=== PATIENT | female | born 1930 | race Caucasian/White ===

== ENCOUNTER 2016-07-28 13:13 | Inpatient (IN) | payer MEDICARE, OTHER ==
[~2016-07-28] VITALS: Ht 154.9 cm; Wt 61.3 kg
[~2016-07-28 13:13] MED LIST: ISOS30TA; PRAS10TA6; SITA1TAB7; UNKNOWN INSULIN; ZOLP5TAB; [UNRECOGNIZED DRUG - REMARK]
[2016-07-28] MEDS ORDERED: SOD CHLORIDE 0.9% 1,000 ML IV STA (13:30)
[2016-07-28] MEDS ORDERED: morphine 4 MG/ML VIAL IV STA (13:30)
[2016-07-28] MEDS ORDERED: ONDANSETRON 4 MG INJ IV STA (13:30)
[2016-07-28 14:10] LABS: ADD SCAN DIFF NO
[2016-07-28 14:14] LABS: BASOPHIL # 0.1 10^3/ul (0.0-0.1); BASOPHILS % 0.8 % (0.0-2.0); EOSINOPHILS # 0.2 10^3/ul (0.0-0.5); EOSINOPHILS % 2.8 % (0.0-7.0); HEMATOCRIT 39.2 % (37.0-47.0); HEMOGLOBIN 13.2 g/dl (12.0-16.0); LYMPHOCYTES # 1.8 10^3/ul (0.8-2.9); LYMPHOCYTES % 23.8 % (15.0-51.0); MEAN CORPUSCULAR HEMOGLOBIN 30.7 pg (29.0-33.0); MEAN CORPUSCULAR HGB CONC 33.7 g/dl (32.0-37.0); MEAN CORPUSCULAR VOLUME 91.2 fl (82.0-101.0); MEAN PLATELET VOLUME 10.6 fl (7.4-10.4); MONOCYTE # 0.4 10^3/ul (0.3-0.9); MONOCYTES % 5.3 % (0.0-11.0); NEUTROPHIL # 4.9 10^3/ul (1.6-7.5); NEUTROPHILS % 66.4 % (39.0-77.0); PLATELET COUNT 229 10^3/UL (140-415); RED CELL DISTRIBUTION WIDTH 13.6 % (11.5-14.5); WHITE BLOOD COUNT 7.4 10^3/ul (4.8-10.8)
[2016-07-28 14:22] LABS: INR 0.91; PROTIME 12.2 Sec (12.2-14.2)
[2016-07-28 14:23] LABS: PARTIAL THROMBOPLASTIN TIME 30.3 Sec (25.0-35.0)
[2016-07-28 14:28] LABS: ALBUMIN 3.5 g/dl (3.3-4.9); CHLORIDE 102 mmol/L (97-110); SODIUM 140 mmol/L (135-144)
[2016-07-28 14:29] LABS: POTASSIUM 4.3 mmol/L (3.5-5.1)
[2016-07-28 14:30] LABS: AMYLASE 48 U/L (11-123)
[2016-07-28 14:31] LABS: ALANINE AMINOTRANSFERASE 28 IU/L (13-69); ALBUMIN/GLOBULIN RATIO 1.25; ALKALINE PHOSPHATASE 122 IU/L (42-121); ANION GAP 18 (8-16); ASPARTATE AMINO TRANSFERASE 20 IU/L (15-46); BILIRUBIN,INDIRECT 0.2 mg/dl (0-1.1); BILIRUBIN,TOTAL 0.2 mg/dl (0.2-1.3); BLOOD UREA NITROGEN 34 mg/dl (7-20); CARBON DIOXIDE 24 mmol/L (21-31); CREATININE 1.27 mg/dl (0.44-1.00); GLUCOSE 284 mg/dl (70-220); TOTAL PROTEIN 6.3 g/dl (6.1-8.1)
[2016-07-28 14:32] LABS: CALCIUM 9.9 mg/dl (8.4-10.2)
[2016-07-28] MEDS ORDERED: LANT3I SC (14:33)
[2016-07-28] MEDS ORDERED: OLME20TA20 PO (14:36)
[2016-07-28 14:45] LABS: TROPONIN-I < 0.012 ng/ml (0.00-0.12)
--- NOTE | 2016-07-28 14:56 | RADRPT ---
PROCEDURE: XR Chest. CLINICAL INDICATION: 86-year-old male with abdominal pain. TECHNIQUE: Single frontal view of the chest was obtained COMPARISON: No. FINDINGS: The soft tissues are normal. There are osteophytes in the thoracic spine. The the heart is enlarge d. The pulmonary vasculature is equilibrated with bilateral perihilar and basilar interstitial and alveolar infiltrates present. The left diaphragm is not visualized. The right diaphragm is partial ly obscured by infiltrate. . There is a less aorta. There are degenerative changes in the glenohumeral joints and narrowing of the right subacromial joint space. There are osteophytes in the thoracic spine. An abdominal shie ld is in place. IMPRESSION: 1. Cardiomegaly with equilibration the pulmonary vasculature with bilateral perihilar and basilar in terstitial and alveolar infiltrates. CHF might present this fashion. An interstitial pneumonia wit h cardiomegaly can be considered. 2. Obscuration left diaphragm may be the result of infiltrate. An associated left pleural effusion can be excluded with a left lateral decubitus view needed. 3. Spondylosis of the thoracic spine. 4. Atherosclerosis of the aortic arch. 5. Chronic right rotator cuff tear with narrowing of the right subacromial joint space. RPTAT:AAJJ Physician Zoltan Date Time Electronically viewed and signed by Nick Wiseman Physician on 07/28/2016 14:56 ZAIDA/
[2016-07-28] MEDS ORDERED: IODIXANOL LOCM 100 ML BTL ONE (15:08)
[2016-07-28] MEDS ORDERED: SOD CHLORIDE 0.9% 100 ML ONE (15:08)
--- NOTE | 2016-07-28 16:04 | RADRPT ---
PROCEDURE: CT Abdomen and Pelvis with contrast. CLINICAL INDICATION: Abdominal and flank pain TECHNIQUE: CT of the abdomen and pelvis was performed on a multi-detector scanner following the un complicated IV administration of 99 cc of Visipaque 320. Coronal and sagittal images were reformatt ed from the axial data set. One or more of the following dose reduction techniques were used: autom ated exposure control, adjustment of the mA and/or kV according to patient size, use of iterative r econstruction technique. CTDI = 10.6 mGy. DLP = 631.07 mGy-cm. COMPARISON: None. FINDINGS: CT abdomen: Mild right pleural effusion and bibasilar atelectasis are noted. There is mild cardiomegaly, withou t significant pericardial fluid. Coronary arterial calcifications are noted. Liver, gallbladder, b iliary tree, pancreas, spleen, adrenal glands and kidneys are unremarkable. No urolithiasis or obst ructive uropathy is identified. Mild hiatal hernia is noted. There is suggestion of mild diffuse g astric wall thickening, suspicious for mild gastritis. There is no abdominal aortic aneurysm or dissection. Aortic vascular calcifications are present. T here is no retroperitoneal lymphadenopathy. The nelia hepatis region is clear. CT pelvis: No bowel obstruction, free intraperitoneal air or abscess is identified. Sigmoid diverticulosis is seen without diverticulitis. The appendix is well visualized and normal. There is no colitis. Uri nary bladder is moderately distended, concerning for urinary retention. Uterus and adnexa are gross ly unremarkable. No pelvic mass, free fluid or lymphadenopathy is identified. The surrounding osseous structures are remarkable for degenerative spondylosis of the spine. No ost eolytic or osteoblastic lesion is detected. IMPRESSION: 1. Urinary bladder is moderately distended, concerning for urinary retention. 2. There is suggestion of mild diffuse gastric wall thickening, possibly indicating gastritis. 3. Mild hiatal hernia is noted. 4. There is mild cardiomegaly. Coronary arterial and aortic atherosclerotic calcifications are pre sent. 5. Mild right pleural effusion and bibasilar atelectasis are noted. 6. Sigmoid diverticulosis is seen without diverticulitis. 7. No mass or lymphadenopathy is identified. RPTAT: JJ .Giancarlo Rusnack, MD, MD Date Time Electronically viewed and signed by .Giancarlo Kilpatrick MD, MD on 07/28/2016 16:04 .R/
[2016-07-28] MEDS ORDERED: LEVOFLOXACIN 500MG/D5W (PMX) 100 ML IVPB STA (16:10)
[2016-07-28] MEDS ORDERED: AZITHROMYCIN 500MG/NS (PMX) 250 ML IV STA (16:10)
[2016-07-28] MEDS ORDERED: LEVALBUTEROL (NEB) 0.63 MG/3 ML AMP INH STA (16:18)
[2016-07-28] MEDS ORDERED: IPRATROPIUM (NEB) 0.5 MG/2.5 ML AMP NEB STA (16:18)
--- NOTE | 2016-07-28 19:21 | ERA ---
ER Documentation Chief Complaint Date/Time DATE: 07/28/16 TIME: 19:10 Chief Complaint BROUGHT IN VIA EMS DUE TO GROUND LEVEL FALL YESTERDAY HPI This is a very pleasant 86-year-old Farsi speaking female with a known history of insulin-dependent diabetes that presents to the emergency department complaining of right-sided chest wall pain after she had a mechanical slip and fall 2023 hours prior to arrival. The patient stated she been walking to the bathroom when she slipped and fell and landed on her right side. She was able to ambulate and stated she did not hit her head or lose consciousness. Since that time she indicates has been difficult for her to take in a deep breath and has right-sided chest wall pain that is exacerbated by movement. She denies any back pain. She does indicate that just prior to arrival she started to develop pain in the right lower quadrant that was exacerbated with movement and deep inspiration. She denies any hemoptysis hematemesis or melanotic stools. She has had no fevers or shaking or chills. She states it is difficult for her to take in a deep breath but denies a productive or nonproductive cough. She did not take any analgesic medication prior to arrival. She denies any polyuria or polydipsia ROS All systems reviewed and are negative except as per history of present illness. Medications Home Meds Reported Medications Olmesartan Medoxomil (Benicar) Unknown Strength Tablet, PO DAILY, #30 TAB 07/28/16 Insulin Glargine* (Lantus*) 100 Unit/Ml Soln, 20 UNIT SC BID, #1 VIAL 07/28/16 Discontinued Reported Medications [Unknown Insulin] No Conflict Check 03/22/13 [Unknown Cortisone Shot] No Conflict Check 03/22/13 Sitagliptin Phos-Metformin Hcl (Janumet) 1 Tab Tablet, BID 03/22/13 Zolpidem Tartrate (Ambien Adam) 5 Mg Tablet, HS 03/22/13 Isosorbide Mononitrate* (Imdur*) 30 Mg Tab.sr.24h, DAILY 03/22/13 Prasugrel Hydrochloride* (Effient*) 10 Mg Tablet, DAILY 03/22/13 Allergies Allergies: Coded Allergies: No Known Drug Allergies (Verified Allergy, 03/22/13) PMhx/Soc History of Surgery: Yes (LEFT KNEE, ANGIOGRAM) Anesthesia Reaction: No Hx Neurological Disorder: No Hx Respiratory Disorders: No Hx Cardiac Disorders: Yes (HTN) Hx Psychiatric Problems: No Hx Miscellaneous Medical Probl: Yes (IDDM) Hx Alcohol Use: No Hx Substance Use: No Hx Tobacco Use: No Smoking Status: Never smoker Physical Exam Vitals Vital Signs Date Time Temp Pulse Resp B/P Pulse Ox O2 Delivery O2 Flow Rate FiO2 07/28/16 18:00 87 18 140/78 92 Room Air 07/28/16 17:17 85 20 93 21 07/28/16 16:00 78 18 132/73 96 Room Air 07/28/16 13:40 98.1 80 18 144/60 98 Physical Exam Constitutional:Well-developed. Well-nourished. HEENT:Normocephalic. Atraumatic.Pupils were equal round reactive to light. Moist mucous membranes.No tonsillar exudates. No nasoseptal hematoma. No hemotympanum. Neck: No nuchal rigidity. No lymphadenopathy. No posterior cervical spine tenderness or step-offs. Respiratory: Not using accessory muscles of respiration. Decreased breath sounds in the right lower lung base. No rhonchi. No rales. No wheezing. Cardiovascular: Regular rate regular rhythm.No murmurs. No rubs were appreciated.S1, S2 normal. Distal pulses are palpable 2+ bilaterally. Reproducible tenderness over the right lateral rib cage with no crepitus no ecchymosis no flail chest peer GI: Abdomen was soft. Nontender. Tenderness in the left and right lower quadrant nonspecific over McBurney's point and psoas sign and obturator sign were negative. No pulsatile abdominal masses or bruits. No rebound. No guarding. Bowel sounds were present and normal. Muscle skeletal: Full range of motion of both the upper and lower extremities bilaterally.Normal muscle tone.No assymetrical calf tenderness or swelling. No tenderness with palpation or percussion of the thoracic or lumbar spinous processes Skin: No petechia, no purpura. No lesions on the palms or the soles of the feet. No maculopapular rash. NEURO: Patient was alert, awake, orientated x3.No facial droop. Gait observed and normal with no ataxia.Speech had regular rate and rhythm. No focal neurological deficits. Result Diagram: 07/28/16 1300 07/28/16 1300 Results 24 hrs Laboratory Tests Test 07/28/16 13:00 Activated Partial Thromboplast Time 30.3Sec Alanine Aminotransferase (ALT/SGPT) 28IU/L Albumin 3.5g/dl Albumin/Globulin Ratio 1.25 Alkaline Phosphatase 122IU/L Amylase Level 48U/L Anion Gap 18 Aspartate Amino Transf (AST/SGOT) 20IU/L B-Type Natriuretic Peptide 309PG/ML Basophils # 0.110^3/ul Basophils % 0.8% Blood Urea Nitrogen 34mg/dl Calcium Level 9.9mg/dl Carbon Dioxide Level 24mmol/L Chloride Level 102mmol/L Creatinine 1.27mg/dl Direct Bilirubin 0.00mg/dl Eosinophils # 0.210^3/ul Eosinophils % 2.8% Globulin 2.80g/dl Glucose Level 284mg/dl Hematocrit 39.2% Hemoglobin 13.2g/dl INR International Normalized Ratio 0.91 Indirect Bilirubin 0.2mg/dl Lipase 55U/L Lymphocytes # 1.810^3/ul Lymphocytes % 23.8% Mean Corpuscular Hemoglobin 30.7pg Mean Corpuscular Hemoglobin Concent 33.7g/dl Mean Corpuscular Volume 91.2fl Mean Platelet Volume 10.6fl Monocytes # 0.410^3/ul Monocytes % 5.3% Neutrophils # 4.910^3/ul Neutrophils % 66.4% Nucleated Red Blood Cells # 0.010^3/ul Nucleated Red Blood Cells % 0.0/100WBC Platelet Count 39101^3/UL Potassium Level 4.3mmol/L Prothrombin Time 12.2Sec Prothrombin Time Ratio 1.0 Red Blood Count 4.3010^6/ul Red Cell Distribution Width 13.6% Sodium Level 140mmol/L Total Bilirubin 0.2mg/dl Total Protein 6.3g/dl Troponin I < 0.012ng/ml White Blood Count 7.410^3/ul Current Medications Medications (Trade) Dose Ordered Sig/Christopher Route PRN Reason Start Time Stop Time Status Last Admin Dose Admin Sodium Chloride (NS) 1,000 ml @ 1,000 mls/hr Q1H STAT IV 07/28/16 13:30 07/28/16 14:29 DC 07/28/16 14:10 Morphine Sulfate (morphine) 4 mg ONCE STAT IV 07/28/16 13:30 07/28/16 13:32 DC 07/28/16 14:10 Ondansetron HCl (Zofran Inj) 4 mg ONCE STAT IV 07/28/16 13:30 07/28/16 13:32 DC 07/28/16 14:10 IV Flush 10 ml 10 ml STK-MED ONCE .ROUTE 07/28/16 15:08 07/28/16 15:09 DC 07/28/16 15:37 Sodium Chloride (NS) 100 ml @ ud STK-MED ONCE .ROUTE 07/28/16 15:08 07/28/16 15:09 DC 07/28/16 15:37 Iodixanol 100 ml 100 ml STK-MED ONCE .ROUTE 07/28/16 15:08 07/28/16 15:09 DC 07/28/16 15:37 Azithromycin 250 ml @ 250 mls/hr ONCE STAT IV 07/28/16 16:10 07/28/16 17:09 DC 07/28/16 16:47 Levofloxacin/ Dextrose (Levaquin 500mg/ D5W 100 ml (Pmx)) 100 ml @ 100 mls/hr ONCE STAT IVPB 07/28/16 16:10 07/28/16 17:09 DC 07/28/16 16:47 Ipratropium [place] (Atrovent 0.02% (Neb)) 0.5 mg ONCE STAT NEB 07/28/16 16:18 07/28/16 16:19 DC 07/28/16 17:16 Levalbuterol (Xopenex Neb) 0.63 mg ONCE STAT INH 07/28/16 16:18 07/28/16 16:19 DC 07/28/16 17:16 Procedures/MDM This patient presented to the emergency department with abdominal pain after a ground-level fall was seen and evaluated by myself. My differential diagnosis included but was not limited to abdominal aortic aneurysm, appendicitis, pancreatitis, perforated peptic ulcer, perforated viscus, Boerhaave's syndrome or visceral pain such as diverticulitis, DKA, esophagitis, hepatitis or bowel obstruction. The patient was placed on a monitoring analyst, continuous pulse oximetry, and IV access was established by nursing staff. The patient was given intravenous morphine and Zofran. The patient had a CT scan of the abdomen that was ordered and reviewed by myself as well as the radiologist and indicated the followin. Urinary bladder is moderately distended, concerning for urinary retention. 2. There is suggestion of mild diffuse gastric wall thickening, possibly indicating gastritis. 3. Mild hiatal hernia is noted. 4. There is mild cardiomegaly. Coronary arterial and aortic atherosclerotic calcifications are present. 5. Mild right pleural effusion and bibasilar atelectasis are noted. 6. Sigmoid diverticulosis is seen without diverticulitis. 7. No mass or lymphadenopathy is identified. Also obtained a chest radiograph to rule out a pneumothorax or rib fractures and a chest radiograph reviewed by the radiologist indicated the followin. Cardiomegaly with equilibration the pulmonary vasculature with bilateral perihilar and basilar interstitial and alveolar infiltrates. CHF might present this fashion. An interstitial pneumonia with cardiomegaly can be considered. 2. Obscuration left diaphragm may be the result of infiltrate. An associated left pleural effusion can be excluded with a left lateral decubitus view needed. 3. Spondylosis of the thoracic spine. 4. Atherosclerosis of the aortic arch. 5. Chronic right rotator cuff tear with narrowing of the right subacromial joint space. The patient has no history of CHF and BNP was slightly elevated. Blood cultures and urine cultures were obtained. The patient has not had any recent hospitalizations and given the pain with poor respiratory effort I was concerned with pneumonia. The patient was given IV Levaquin and azithromycin. 12 Lead EKG tracing ordered and reviewed by myself showed: Normal sinus rhythm of 77 bpm and no arrhythmia. SC interval normal. QRS duration normal. No ST segment elevation No ST segment depression. No changes consistent with acute ischemia. Observation Note: Time: 5 hours Family Hx: No Hypertension Evaluation: Multiple exams showed worsening of the patient's pain despite opiate analgesic medication. The patient also had developed hypoxia. upon reevaluation the patient she did have mild wheezing on inspiration on the right side. The patient received nebulizer treatments of albuterol and Atrovent. She was satting at 93% on room air. Given the findings on the chest radiograph with possible pneumonia versus new onset congestive heart failure I did obtain a CT scan of the chest also to further evaluate for any possible rib fractures. I did feel the patient required admission for IV analgesic medication and new onset pneumonia she will be admitted to the hospitalist in serious condition and will go to the telemetry service. Departure Diagnosis: Primary Impression: Pneumonia Qualified Code: J18.9 - Pneumonia of both lungs due to infectious organism, unspecified part of lung Additional Impressions: Intractable pain Diverticulosis Qualified Code: K57.30 - Diverticulosis of large intestine without hemorrhage Rib injury Condition: Serious TOBIAS BARNES Jul 28, 2016 19:20
[2016-07-28] MEDS ORDERED: ONDANSETRON 4 MG INJ IV PRN ×2 (20:00→20:30)
[2016-07-28] MEDS ORDERED: FUROSEMIDE 40 MG INJ IV ONE (20:00)
[2016-07-28] MEDS ORDERED: ACETAMINOPHEN 325 MG TAB PO PRN ×2 (20:00→20:30)
[2016-07-28 20:22] VITALS: TEMP 98.5
[2016-07-28] MEDS ORDERED: NA PHOSPHATE/BIPHOS 133 ML ENEMA PR PRN (20:30)
[2016-07-28] MEDS ORDERED: MAGNESIUM HYDROXIDE 30ML CUP PO PRN (20:30)
[2016-07-28] MEDS ORDERED: NACL 0.9% 3 ML SYG IV SCH (20:30)
[2016-07-28] MEDS ORDERED: ALBUTEROL/IPRATROPIUM (NEB) 3 ML AMP HHN PRN (20:30)
[2016-07-28] MEDS ORDERED: HYDROCODONE/APAP (5/325) TAB PO PRN (20:30)
[2016-07-28] MEDS ORDERED: NITROGLYCERIN (SL) 0.4 MG TAB SL PRN (20:30)
[2016-07-28] MEDS ORDERED: DOCUSATE SODIUM 100 MG CAP PO PRN (20:30)
[2016-07-28] MEDS ORDERED: hydrALAzine 20 MG INJ IV PRN (20:30)
[2016-07-28] MEDS ORDERED: VANCOMYCIN IV PER PHARMACY XX SCH (20:30)
[2016-07-28] MEDS ORDERED: LORAZEPAM 2 MG INJ IV PRN (20:30)
[2016-07-28 21:00] VITALS: BP 181/81; RESP 18
[2016-07-28] MEDS ORDERED: VANCOMYCIN 1 GM in NS 250 ML IVPB ONE (21:00)
[2016-07-28] MEDS: INSULIN ASPART [NOVOLOG] 3 ML PEN SC SCH (21:00)
[2016-07-28] MEDS ORDERED: GLUCAGON 1 MG INJ IM PRN (21:00)
[2016-07-28] MEDS ORDERED: DEXTROSE 50% 50 ML SYRINGE IV PRN ×2 (21:00)
[2016-07-28] MEDS ORDERED: GLUCOSE GEL 15 GRAM TUBE BUCCAL PRN (21:00)
[2016-07-28] MEDS ORDERED: GLUCOSE GEL 15 GRAM TUBE PO PRN ×2 (21:00)
[2016-07-28] MEDS: INSULIN GLARGINE [LANtus] 3 ML PEN SC SCH (21:00)
--- NOTE | 2016-07-28 21:07 | RADRPT ---
PROCEDURE: CT Chest without contrast. CLINICAL INDICATION: Pneumonia. TECHNIQUE: CT scan of the chest without contrast was performed on a multidetector high-resolution CT scanner. Coronal and sagittal reformatted images were obtained from the axial source images. The total exam CTDI equals 7.37 mGy and the total exam DLP equals 274.6 mGy-cm. One or more of the following dose reduction techniques were used: - Automated exposure control. - Adjustment of the mA and/or kV according to patient size. Use of iterative reconstruction technique. COMPARISON: Chest x-ray 07/28/2016 02:36 p.m. FINDINGS: The vocal cords, thyroid gland trachea are normal. There are vascular calcifications in the aortic arch, innominate artery and proximal portions of the right and left subclavian arteries. The pulmonary vasculature is equilibrated. No pleural effusion is noted. No enlarged supraclavicular or axillary lymph nodes are identified. No chest wall mass is noted. There are bronchograms consistent with consolidative infiltrate in the periphery of the right lower lobe. There is a 3 mm calcified granuloma abutting the pleural space in the medial lingula. There is peripheral atelectasis in the left lower lobe. There is a 4.5 mm pulmonary nodule abutting the pleural surface in the left upper lobe. This is mos t likely a granuloma and requires no additional follow-up. There are peripheral plate-like densities in the posterior segment of the right upper lobe and poste rior apical segment of the left upper lobe consistent with atelectasis or scarring. The pulmonary va sculature There are small degenerative osteophytes in the thoracic spine. No acute bony fracture or bone metas tasis is noted. There are old healed left-sided rib fractures. There are vascular calcifications in the coronary arteries, thoracic aorta and upper abdominal aorta . There is a small hiatal hernia. Stomach is distended with fluid and air. The liver measures 14 cm AP and is unremarkable as visualized. Small amount of sludge and/or small stones are noted in the dependent portion of the gallbladder. There are vascular calcifications in the splenic artery. The spleen is normal in size. The adrenal glands and visible portions of the kidneys are normal. IMPRESSION: 1. Resolution of the interstitial pulmonary edema previously identified on the chest x-ray performe d at 02:36 p.m. July 28, 2016. 2. 4.5 ml pulmonary nodule abutting the pleural surface in the left upper lobe and 3 mm calcified g ranuloma in the medial lingula. 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 3. Small localized consolidated infiltrate/atelectasis in the right lower lobe with air bronchogram s. Pneumonia might present this fashion. 4. Atherosclerosis and ectasia of the thoracic aorta. Atherosclerotic vascular disease involving t he coronary arteries. 5. Multiple old healed left-sided rib fractures. RPTAT:AAJJ Nick Wiseman Physician Date Time Electronically viewed and signed by Nick Wiseman Physician on 07/28/2016 21:06 ZAIDA/
[2016-07-28 21:29] VITALS: Ht 154.9 cm; Wt 61.3 kg
[2016-07-28 21:33] VITALS: PULSE 75
[2016-07-28] MEDS: morphine 2 MG INJ IV PRN (22:04)
[2016-07-29] VITALS (12 sets, daily range): BP systolic 111–137; BP diastolic 54–65; PULSE 75–80; RESP 18–20
[2016-07-29] MEDS: INSULIN ASPART [NOVOLOG] 3 ML PEN SC SCH ×6 (00:40→21:37)
[2016-07-29] MEDS: PIPER-TAZO 3.375 GM IV (PMX) 100 ML IVPB SCH ×2 (00:40→05:09)
[2016-07-29] MEDS: PANTOPRAZOLE 40 MG INJ IV SCH (05:08)
[2016-07-29] MEDS: morphine 2 MG INJ IV PRN ×3 (05:09→21:27)
[2016-07-29] MEDS: SOD CHLORIDE 0.45% 1,000 ML IV SCH ×2 (06:03→20:27)
--- NOTE | 2016-07-29 07:19 | HP ---
DATE OF ADMISSION: 07/28/2016 The patient was seen and examined by me at 8:50 p.m. on 07/28/2016. CHIEF COMPLAINT: Right flank pain, ground level fall, and shortness of breath. HISTORY OF PRESENT ILLNESS: An 86-year-old female with a past medical history of essential hyperten arash, insulin-dependent diabetes, and dementia, who is Farsi-speaking, who has been having right-hai ed chest pain and some shortness of breath. Apparently, she had a mechanical slip and fall about 24 hours prior to arrival as well, and this occurred apparently at home, but she did not hit her head or lose consciousness. She has also been having difficulty taking in a deep breath and has had righ t-sided chest pain that is exacerbated by movement. No fevers or chills. No upper or lower GI blee ding. No productive cough. No dysuria. No nausea or vomiting. No headaches. When she came into the ER today she had a CT scan of the chest performed that did show resolution of interstitial pulmo nary edema previously identified on 07/28/2016 x-ray, but there is a 4.5-mm pulmonary nodule abuttin g the pleural surface in the left upper lobe and a 3-mm calcified granuloma in the medial lingula, l ikely a result of TB, and there is a small localized consolidation, infiltrate, or atelectasis in th e right lower lobe with air bronchograms, possible pneumonia. Multiple old healed left-sided rib fr actures. There was a CT abdomen and pelvis performed that showed the urinary bladder moderately dis tended, concerning for urinary retention and suggestive of mild diffuse gastric wall thickening, pos sibly indicating gastritis. There was also a chest x-ray that showed cardiomegaly with of the pulmonary vasculature with bilateral perihilar and basilar interstitial nodular infiltrates, possib le CHF, and also could not rule out interstitial pneumonia. PAST MEDICAL HISTORY: As stated above. ALLERGIES: NO KNOWN DRUG ALLERGIES. MEDICATIONS AT HOME: Benicar, unknown dose, and Lantus 20 units subcutaneous b.i.d. PAST SURGICAL HISTORY: She has had left knee surgery in the past and angiogram in the past. SOCIAL HISTORY: Negative for smoking, drinking, or IV drug abuse. FAMILY HISTORY: Noncontributory. PHYSICAL EXAMINATION: VITAL SIGNS: Today T-max 98.1, pulse 78 to 87, respirations 18 to 20, blood pressure is 132 to 144 s ystolic over 73 to 60 diastolic, saturating at 96% on room air. GENERAL: The patient is lying in bed, in mild distress, complaining of right-sided pain. i s at the bedside, but alert. HEENT: Pupils are equal, round, and react to light. Extraocular muscles are intact. NECK: Supple. No thyromegaly. LUNGS: Slightly decreased breath sounds, right greater than left. There is also tenderness to palp ation in the right thoracic area. CARDIOVASCULAR: S1, S2 heard. No rubs or gallops. Again, there is reproducible tenderness over th e right lateral rib cage area. ABDOMEN: Mild tenderness in left and right lower quadrants, but otherwise normal bowel sounds. No r ebound or guarding. MUSCULOSKELETAL: No lower extremity edema bilaterally. NEUROLOGIC: No focal deficits. LABORATORIES: CBC is completely normal. Sodium 140, potassium 4.3, chloride 102, CO2 24, BUN of 34 , creatinine 1.27, glucose 284. LFTs are normal. BNP is 309. Imaging results as mentioned above. ASSESSMENT AND PLAN: This is an 86-year-old female coming in with right thoracic and mild flank josé manuel n, as well as some shortness of breath, with signs of infiltrates on the chest imaging studies. 1. Right flank pain. Could be secondary to the patient's pneumonia and mild CHF. There are no sig ns of any rib fractures. The patient did fall about 24 hours prior to admission, so will admit the patient to the telemetry floor, put her on broad spectrum antibiotics, check a TSH, A1c, and lipid p mago. Tylenol p.r.n. for pain and fevers as well. Check a CBC and basic metabolic panel in the [facility]. Consider following up respiratory cultures as well. 2. History of diabetes. Continue sliding scale insulin. Continue Lantus and check an A1c. 3. History of hypertension. Blood pressure is presently stable. Continue hydralazine p.r.n. systo lic greater than 160. 4. Mild renal insufficiency. Will put the patient on half-normal saline IV fluids and monitor BUN and creatinine levels in the morning. Consider checking an echocardiogram as well. Also get PT and OT consults. 5. Gastrointestinal prophylaxis. PPI. 6. Deep venous thrombosis prophylaxis. Put on SCDs. Dictated By: FILI FARRIS Conf#: [id number] DID#: [id number]
[2016-07-29 07:34] LABS: THYROID STIMULATING HORMONE 4.08 MIU/L (0.465-4.680)
[2016-07-29 07:50] LABS: ADD SCAN DIFF NO
[2016-07-29 08:45] LABS: ADD UMIC YES; URINE BILIRUBIN (Dip) NEGATIVE (NEGATIVE); URINE BLOOD (Dip) NEGATIVE (NEGATIVE); URINE COLOR LT. YELLOW (YELLOW); URINE KETONES (Dip) NEGATIVE (NEGATIVE); URINE LEUKOCYTE ESTERASE (Dip) TRACE (NEGATIVE); URINE NITRITE (Dip) NEGATIVE (NEGATIVE); URINE TOTAL PROTEIN (Dip) NEGATIVE (NEGATIVE); URINE UROBILINOGEN (Dip) 0.2 E.U./dL (0.1-1.0)
[2016-07-29 09:00] LABS: BASOPHILS % 0.5 % (0.0-2.0); EOSINOPHILS # 0.5 10^3/ul (0.0-0.5); EOSINOPHILS % 6.2 % (0.0-7.0); HEMATOCRIT 36.4 % (37.0-47.0); HEMOGLOBIN 12.3 g/dl (12.0-16.0); LYMPHOCYTES % 26.9 % (15.0-51.0); MEAN CORPUSCULAR HEMOGLOBIN 30.8 pg (29.0-33.0); MEAN CORPUSCULAR HGB CONC 33.8 g/dl (32.0-37.0); MEAN PLATELET VOLUME 9.9 fl (7.4-10.4); MONOCYTE # 0.5 10^3/ul (0.3-0.9); NEUTROPHIL # 4.4 10^3/ul (1.6-7.5); NEUTROPHILS % 58.7 % (39.0-77.0); PLATELET COUNT 220 10^3/UL (140-415); RED CELL DISTRIBUTION WIDTH 13.4 % (11.5-14.5); WHITE BLOOD COUNT 7.6 10^3/ul (4.8-10.8)
[2016-07-29] MEDS ORDERED: FUROSEMIDE 40 MG INJ IV SCH (09:00)
[2016-07-29 09:34] LABS: SQUAMOUS EPITHELIAL CELL,UR FEW; URINE RBCS NONE SEEN /HPF (0)
[2016-07-29 09:50] LABS: POTASSIUM 3.6 mmol/L (3.5-5.1)
[2016-07-29 09:53] LABS: CREATININE 1.15 mg/dl (0.44-1.00)
[2016-07-29 09:54] LABS: CALCIUM 8.8 mg/dl (8.4-10.2); MAGNESIUM 1.8 mg/dl (1.7-2.5); PHOSPHORUS 3.5 mg/dl (2.5-4.9)
[2016-07-29] MEDS: INSULIN GLARGINE [LANtus] 3 ML PEN SC SCH ×2 (10:23→21:31)
--- NOTE | 2016-07-29 12:06 | PN ---
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 is at the bedside, but alert. HEENT: Pupils are equal, round, and react to light. Extraocular muscles are intact. NECK: Supple. No thyromegaly. LUNGS: Slightly decreased breath sounds, right greater than left. There is also tenderness to palpation in the right thoracic area. CARDIOVASCULAR: S1, S2 heard. No rubs or gallops. Again, there is reproducible tenderness over the right lateral rib cage area. ABDOMEN: Mild tenderness in left and right lower quadrants, but otherwise normal bowel sounds. No rebound or guarding. MUSCULOSKELETAL: No lower extremity edema bilaterally. NEUROLOGIC: No focal deficits. Results Result Diagram: 07/29/16 0531 07/29/16 0830 Results 24 hrs Laboratory Tests Test 07/28/16 13:00 07/28/16 15:00 07/28/16 22:13 07/29/16 00:37 Activated Partial Thromboplast Time 30.3 Alanine Aminotransferase (ALT/SGPT) 28 Albumin 3.5 Albumin/Globulin Ratio 1.25 Alkaline Phosphatase 122 H Amylase Level 48 Anion Gap 18 H Aspartate Amino Transf (AST/SGOT) 20 B-Type Natriuretic Peptide 309 Basophils # 0.1 Basophils % 0.8 Blood Urea Nitrogen 34 H Calcium Level 9.9 Carbon Dioxide Level 24 Chloride Level 102 Creatinine 1.27 H Direct Bilirubin 0.00 Eosinophils # 0.2 Eosinophils % 2.8 Globulin 2.80 Glucose Level 284 H Hematocrit 39.2 Hemoglobin 13.2 INR International Normalized Ratio 0.91 Indirect Bilirubin 0.2 Lipase 55 Lymphocytes # 1.8 Lymphocytes % 23.8 Mean Corpuscular Hemoglobin 30.7 Mean Corpuscular Hemoglobin Concent 33.7 Mean Corpuscular Volume 91.2 Mean Platelet Volume 10.6 H Monocytes # 0.4 Monocytes % 5.3 Neutrophils # 4.9 Neutrophils % 66.4 Nucleated Red Blood Cells # 0.0 Nucleated Red Blood Cells % 0.0 Platelet Count 229 Potassium Level 4.3 Prothrombin Time 12.2 Prothrombin Time Ratio 1.0 Red Blood Count 4.30 Red Cell Distribution Width 13.6 Sodium Level 140 Total Bilirubin 0.2 Total Protein 6.3 Troponin I < 0.012 White Blood Count 7.4 Free Thyroxine 1.03 Bedside Glucose 95 75 Test 07/29/16 05:00 07/29/16 05:04 07/29/16 05:31 07/29/16 08:30 Urine Bilirubin NEGATIVE Urine Clarity CLEAR Urine Color LT. YELLOW Urine Glucose 0.5% H Urine Hemoglobin NEGATIVE Urine Ketones NEGATIVE Urine Leukocyte Esterase TRACE H Urine Microscopic RBC NONE SEEN Urine Microscopic WBC 2-5 Urine Nitrite NEGATIVE Urine Specific [place] 1.010 Urine Squamous Epithelial Cells FEW Urine Total Protein NEGATIVE Urine Urobilinogen 0.2 E.U./dL Urine Yeast MODERATE Urine pH 5.0 Bedside Glucose 88 Basophils # 0.0 Basophils % 0.5 Eosinophils # 0.5 Eosinophils % 6.2 Hematocrit 36.4 L Hemoglobin 12.3 Hemoglobin A1c 9.1 H Lymphocytes # 2.0 Lymphocytes % 26.9 Mean Corpuscular Hemoglobin 30.8 Mean Corpuscular Hemoglobin Concent 33.8 Mean Corpuscular Volume 91.0 Mean Platelet Volume 9.9 Monocytes # 0.5 Monocytes % 7.0 Neutrophils # 4.4 Neutrophils % 58.7 Nucleated Red Blood Cells # 0.0 Nucleated Red Blood Cells % 0.0 Platelet Count 220 Red Blood Count 4.00 L Red Cell Distribution Width 13.4 White Blood Count 7.6 Anion Gap 17 H Blood Urea Nitrogen 25 H Calcium Level 8.8 Carbon Dioxide Level 25 Chloride Level 101 Cholesterol Level 120 Cholesterol/HDL Ratio 5.0 Creatinine 1.15 H Glucose Level 74 # HDL Cholesterol 24 L LDL Cholesterol, Calculated 53 Magnesium Level 1.8 Phosphorus Level 3.5 Potassium Level 3.6 Sodium Level 139 Thyroid Stimulating Hormone (TSH) 4.080 Triglycerides Level 213 H Test 07/29/16 08:48 Bedside Glucose 81 Medications Medications Current Medications Ondansetron HCl (Zofran Inj) 4 mg Q6H PRN IV NAUSEA AND/OR VOMITING; Start at 20:30 Acetaminophen (Tylenol Tab) 650 mg Q6H PRN PO PAIN LEVEL 1-3 OR FEVER; Start at 20:30 Acetaminophen/ Hydrocodone Bitart ([place] (5/325)) 1 tab Q6H PRN PO MODERATE PAIN LEVEL 4-6; Start 07/28/16 at 20:30 Morphine Sulfate (morphine) 2 mg Q4H PRN IV SEVERE PAIN LEVEL 7-10 Last administered on 07/29/16 11:44; Admin Dose 2 MG; Start 07/28/16 at 20:30 Docusate Sodium (Colace) 100 mg Q12H PRN PO CONSTIPATION; Start 07/28/16 at 20: 30 Magnesium Hydroxide (Milk Of Mag) 30 ml DAILY PRN PO CONSTIPATION; Start at 20:30 Sodium Biphosphate/ Sodium Phosphate (Fleet Enema) 133 ml DAILY PRN [place] CONSTIPATION; Start 07/28/16 at 20:30 Pantoprazole (Protonix Iv) 40 mg DAILY@06 IV Last administered on 07/29/16 05: 08; Admin Dose 40 MG; Start 07/29/16 at 06:00 Lorazepam (Ativan) 0.5 mg Q6H PRN IV ANXIETY; Start 07/28/16 at 20:30 Vancomycin HCl (Vanco Iv Per Pharmacy) VANCOMYCIN PER PHARMACY NOTE XX ; Start 07/28/16 at 20:30 Hydralazine HCl (Apresoline) 10 mg Q6H PRN IV ELEVATED BLOOD PRESSURE Last administered on 07/28/16 22:05; Admin Dose 10 MG; Start 07/28/16 at 20:30 Nitroglycerin (Nitroglycerin (Sl Tab) 0.4 Mg) 1 tab Q5M PRN SL ANGINA; Start at 20:30 Insulin Aspart (Novolog Insulin Pen) NOVOLOG *MILD* ALGORI... Q4 SC ; Start at 21:00 Insulin Glargine (Lantus) 20 unit BID SC Last administered on 07/29/16 10:23; Admin Dose 20 UNIT; Start 07/28/16 at 21:00 Miscellaneous Information 1 ea NOTE XX ; Start 07/28/16 at 21:00 Glucose (Glutose) 15 gm Q15M PRN PO DECREASED GLUCOSE; Start 07/28/16 at 21:00 Glucose (Glutose) 22.5 gm Q15M PRN PO DECREASED GLUCOSE; Start 07/28/16 at 21: 00 Dextrose (D50w Syringe) 25 ml Q15M PRN IV DECREASED GLUCOSE; Start 07/28/16 at 21:00 Dextrose (D50w Syringe) 50 ml Q15M PRN IV DECREASED GLUCOSE; Start 07/28/16 at 21:00 Glucagon (Glucagen) 1 mg Q15M PRN IM DECREASED GLUCOSE; Start 07/28/16 at 21:00 Glucose 15 gm 15 gm Q15M PRN BUCCAL DECREASED GLUCOSE; Start 07/28/16 at 21:00 Vancomycin HCl 750 mg/Sodium Chloride 150 ml @ 75 mls/hr Q24H IVPB ; Start at 21:00 Sodium Chloride 1,000 ml @ 75 mls/hr [id number] IV Last administered on 06:03; Admin Dose 75 MLS/HR; Start 07/29/16 at 05:30 Piperacillin Sod/ Tazobactam Sod (Zosyn 2.25gm/ 50ml (Pmx)) 50 ml @ 100 mls/hr Q8 IVPB ; Start 07/29/16 at 14:00 NIKIA SEGURA MD Jul 29, 2016 12:06
[2016-07-29] MEDS ORDERED: HYDROCODONE/APAP (5/325) TAB PO PRN (12:30)
[2016-07-29] MEDS: PIPER-TAZO 2.25 GM (PMX) 50 ML IVPB SCH ×2 (13:14→23:21)
--- NOTE | 2016-07-29 18:48 | RADRPT ---
Echocardiogram Report Patient Name: ELLIE HOWE Gender: Female Date: 1930 Study Date: 29-Jul-2016 Picker And Packer: COLEEN Location: [facility] Ref. Physician: FILI BARNES Quality: Technically Difficult Study Procedures: Transthoracic echocardiogram with complete 2D, M-Mode, and Doppler examination. Indications: Congestive Heart Failure. 2D/M Mode Doppler Measurement Value Normal Ranges Measurement Value Normal Ranges AoR Diam MM 3.0 cm AV Peak [place] 1.3 m/sec LVIDd 2D 3.6 3.5 - 5.6 cm AV Peak PG 6.6 mmHg LVIDs 2D 2.3 2.1 - 4.1 cm LVOT Peak [place] 1.0 m/sec LVPWd 2D 1.2 0.6 - 1.1 cm LVOT Peak PG 3.8 mmHg IVSd 2D 1.3 0.6 - 1.1 cm MV E Peak [place] 1.0 m/sec EDV 2D 56.2 cm3 MV A Peak [place] 0.7 m/sec ESV 2D 11.5 cm3 MV E/A 1.4 LA Dimen 2D 3.5 2.3 - 4.0 cm MV Decel Time 286 msec MV Decel [place] 3 MV E/A 1.4 TR Peak [place] 3.0 m/sec TR Peak PG 35.7 mmHg PV Peak [place] 0.7 m/sec PV Peak PG 2.0 mmHg RVSP 38.7 mmHg Findings Left Ventricle: Normal left ventricular systolic function. Normal left ventricular cavity size. Mild concentric left ventricular hypertrophy. Ejection fraction is visually estimated at 60 %. Tissue Doppler/Mitral Doppler indices are consistent with impaired relaxation (Stage I diastolic dysfunction). E/E`=15. Right Ventricle: Normal right ventricular size. Normal right ventricular systolic function. Left Atrium: The left atrium is normal in size. Right Atrium: The right atrium is normal in size. Atrial Septum: Normal atrial septum. Mitral Valve: Mild mitral annular calcification. Trace mitral regurgitation. Aortic Valve: No significant aortic stenosis or insufficiency. Aortic cusps appear mildly calcified. Trileaflet aortic valve. Tricuspid Valve: Normal appearance of the tricuspid valve. Estimated peak PA systolic pressure 39 mmHg. There is mild tricuspid regurgitation. Pulmonic Valve: Normal pulmonic valve appearance. There is trace pulmonic regurgitation. Pericardium: Normal pericardium with no significant pericardial effusion. Right pleural effusion seen. Aorta: Normal aortic root. IVC: Normal size and normal respiratory collapse consistent with normal right atrial pressure. Pulmonary Artery: Normal pulmonary artery size. Conclusions Normal left ventricular systolic function. Normal left ventricular cavity size. Mild concentric left ventricular hypertrophy. Ejection fraction is visually estimated at 60 %. Tissue Doppler/Mitral Doppler indices are consistent with impaired relaxation (Stage I diastolic dysfunction). E/E`=15. Mild mitral annular calcification. Trace mitral regurgitation. No significant aortic stenosis or insufficiency. Aortic cusps appear mildly calcified. Trileaflet aortic valve. Normal appearance of the tricuspid valve. Estimated peak PA systolic pressure 39 mmHg. There is mild tricuspid regurgitation. Electronically Signed By: Martha Severino 29-Jul-2016 18:46:45 -0700 Patient Name: ELLIE HOWE Study Date: 29-Jul-2016 [id number]
--- NOTE | 2016-07-29 18:57 | CONS ---
Date/Time of Note Date/Time of Note DATE: 07/29/16 TIME: 18:47 Assessment/Plan Assessment/Plan Problems: (1) Diverticulosis Status: Acute Qualifiers: Qualified Code: K57.30 - Diverticulosis of large intestine without hemorrhage (2) Rib injury Status: Acute (3) Intractable pain Status: Acute (4) Pneumonia Status: Acute Qualifiers: Qualified Code: J18.9 - Pneumonia of both lungs due to infectious organism, unspecified part of lung Additional Assessment/Plan PNA Rib fracture s.p fall Diastolic HF, Chronic Pt is stable cardiac contreras Pt was seen in office 4 m ago she has CAD with PCI stable Continue ABx diuretics LVEF 60%. Thank you Dr whitman for consultation. Consultation Date/Type/Reason Admit Date/Time Jul 28, 2016 at 19:32 Date of Consultation: Jul 29, 2016 Reason for Consultation sob Hx of Present Illness Patient is known to our service from out pt. Pt of Dr Fuentes 86 year old M who came in with possible PNA. cardiology consulted for possible CHF. Pt has echo with LVEF 60%. and diastolic dysfunction. Pt has history of CAD with PCI x [address] [facility]. right now no CP, some SOB Constitutional: no complaints Past Medical History Medical History: angina, congestive heart failure Social History Smoking Status: Never smoker Exam/Review of Systems Vital Signs Vitals Vital Signs Date Time Temp Pulse Resp B/P Pulse Ox O2 Delivery O2 Flow Rate FiO2 07/29/16 16:27 78 07/29/16 15:47 98.1 18 127/65 95 07/28/16 20:22 Room Air 07/28/16 17:17 21 Intake and Output 07/28/16 07/28/16 07/29/16 15:00 23:00 07:00 Intake Total 1900 ml Balance 1900 ml Exam Constitutional: alert, oriented Psych: no complaints Head: normocephalic Eyes: nl conjunctiva ENMT: mucosa pink and moist, nl external ears & nose Neck: non-tender, supple Respiratory: clear to auscultation Cardiovascular: regular rate and rhythm Gastrointestinal: nl liver, spleen, soft Results Result Diagram: 07/29/16 0531 07/29/16 0830 Results 24 hrs Laboratory Tests Test 07/28/16 22:13 07/29/16 00:37 07/29/16 05:00 07/29/16 05:04 Bedside Glucose 95 75 88 Urine Bilirubin NEGATIVE Urine Clarity CLEAR Urine Color LT. YELLOW Urine Glucose 0.5% H Urine Hemoglobin NEGATIVE Urine Ketones NEGATIVE Urine Leukocyte Esterase TRACE H Urine Microscopic RBC NONE SEEN Urine Microscopic WBC 2-5 Urine Nitrite NEGATIVE Urine Specific [place] 1.010 Urine Squamous Epithelial Cells FEW Urine Total Protein NEGATIVE Urine Urobilinogen 0.2 E.U./dL Urine Yeast MODERATE Urine pH 5.0 Test 07/29/16 05:31 07/29/16 08:30 07/29/16 08:48 07/29/16 12:21 Basophils # 0.0 Basophils % 0.5 Eosinophils # 0.5 Eosinophils % 6.2 Hematocrit 36.4 L Hemoglobin 12.3 Hemoglobin A1c 9.1 H Lymphocytes # 2.0 Lymphocytes % 26.9 Mean Corpuscular Hemoglobin 30.8 Mean Corpuscular Hemoglobin Concent 33.8 Mean Corpuscular Volume 91.0 Mean Platelet Volume 9.9 Monocytes # 0.5 Monocytes % 7.0 Neutrophils # 4.4 Neutrophils % 58.7 Nucleated Red Blood Cells # 0.0 Nucleated Red Blood Cells % 0.0 Platelet Count 220 Red Blood Count 4.00 L Red Cell Distribution Width 13.4 White Blood Count 7.6 Anion Gap 17 H Blood Urea Nitrogen 25 H Calcium Level 8.8 Carbon Dioxide Level 25 Chloride Level 101 Cholesterol Level 120 Cholesterol/HDL Ratio 5.0 Creatinine 1.15 H Glucose Level 74 # HDL Cholesterol 24 L LDL Cholesterol, Calculated 53 Magnesium Level 1.8 Phosphorus Level 3.5 Potassium Level 3.6 Sodium Level 139 Thyroid Stimulating Hormone (TSH) 4.080 Triglycerides Level 213 H Bedside Glucose 81 200 Test 07/29/16 17:14 Bedside Glucose 144 Medications Medications Current Medications Ondansetron HCl (Zofran Inj) 4 mg Q6H PRN IV NAUSEA AND/OR VOMITING; Start at 20:30 Acetaminophen (Tylenol Tab) 650 mg Q6H PRN PO PAIN LEVEL 1-3 OR FEVER; Start at 20:30 Morphine Sulfate (morphine) 2 mg Q4H PRN IV SEVERE PAIN LEVEL 7-10 Last administered on 07/29/16t 11:44; Admin Dose 2 MG; Start 07/28/16 at 20:30 Docusate Sodium (Colace) 100 mg Q12H PRN PO CONSTIPATION; Start 07/28/16 at 20: 30 Magnesium Hydroxide (Milk Of Mag) 30 ml DAILY PRN PO CONSTIPATION; Start at 20:30 Sodium Biphosphate/ Sodium Phosphate (Fleet Enema) 133 ml DAILY PRN [place] CONSTIPATION; Start 07/28/16 at 20:30 Pantoprazole (Protonix Iv) 40 mg DAILY@06 IV Last administered on 07/29/16 05: 08; Admin Dose 40 MG; Start 07/29/16 at 06:00 Lorazepam (Ativan) 0.5 mg Q6H PRN IV ANXIETY; Start 07/28/16 at 20:30 Vancomycin HCl (Vanco Iv Per Pharmacy) VANCOMYCIN PER PHARMACY NOTE XX ; Start 07/28/16 at 20:30 Hydralazine HCl (Apresoline) 10 mg Q6H PRN IV ELEVATED BLOOD PRESSURE Last administered on 07/28/16 22:05; Admin Dose 10 MG; Start 07/28/16 at 20:30 Nitroglycerin (Nitroglycerin (Sl Tab) 0.4 Mg) 1 tab Q5M PRN SL ANGINA; Start at 20:30 Insulin Aspart (Novolog Insulin Pen) NOVOLOG *MILD* ALGORI... Q4 SC Last administered on 07/29/16 17:29; Admin Dose 1 UNIT; Start 07/28/16 at 21:00 Insulin Glargine (Lantus) 20 unit BID SC Last administered on 07/29/16 10:23; Admin Dose 20 UNIT; Start 07/28/16 at 21:00 Miscellaneous Information 1 ea NOTE XX ; Start 07/28/16 at 21:00 Glucose (Glutose) 15 gm Q15M PRN PO DECREASED GLUCOSE; Start 07/28/16 at 21:00 Glucose (Glutose) 22.5 gm Q15M PRN PO DECREASED GLUCOSE; Start 07/28/16 at 21: 00 Dextrose (D50w Syringe) 25 ml Q15M PRN IV DECREASED GLUCOSE; Start 07/28/16 at 21:00 Dextrose (D50w Syringe) 50 ml Q15M PRN IV DECREASED GLUCOSE; Start 07/28/16 at 21:00 Glucagon (Glucagen) 1 mg Q15M PRN IM DECREASED GLUCOSE; Start 07/28/16 at 21:00 Glucose 15 gm 15 gm Q15M PRN BUCCAL DECREASED GLUCOSE; Start 07/28/16 at 21:00 Vancomycin HCl 750 mg/Sodium Chloride 150 ml @ 75 mls/hr Q24H IVPB ; Start at 21:00 Sodium Chloride 1,000 ml @ 75 mls/hr [id number] IV Last administered on 06:03; Admin Dose 75 MLS/HR; Start 07/29/16 at 05:30 Piperacillin Sod/ Tazobactam Sod (Zosyn 2.25gm/ 50ml (Pmx)) 50 ml @ 100 mls/hr Q8 IVPB Last administered on 07/29/16 13:14; Admin Dose 100 MLS/HR; Start at 14:00 Acetaminophen/ Hydrocodone Bitart ([place] (5/325)) 1 tab Q4H PRN PO pain; Start 07/29/16 at 12:30 SIA WAGGONER MD Jul 29, 2016 18:57
[2016-07-29] MEDS: VANCOMYCIN 750 MG in SOD CHLORIDE 0.9% 150 ML IVPB SCH (21:38)
[2016-07-30] VITALS (13 sets, daily range): BP systolic 117–137; BP diastolic 38–74; PULSE 77–98; RESP 17–20
[2016-07-30] MEDS: INSULIN ASPART [NOVOLOG] 3 ML PEN SC SCH ×5 (01:00→21:10)
[2016-07-30] MEDS: PIPER-TAZO 2.25 GM (PMX) 50 ML IVPB SCH ×3 (06:00→23:03)
[2016-07-30] MEDS: PANTOPRAZOLE 40 MG INJ IV SCH (06:00)
[2016-07-30 07:37] LABS: ADD SCAN DIFF NO
[2016-07-30 07:42] LABS: BASOPHILS % 0.5 % (0.0-2.0); EOSINOPHILS # 0.5 10^3/ul (0.0-0.5); EOSINOPHILS % 6.3 % (0.0-7.0); HEMATOCRIT 36.2 % (37.0-47.0); HEMOGLOBIN 12.1 g/dl (12.0-16.0); LYMPHOCYTES # 1.3 10^3/ul (0.8-2.9); LYMPHOCYTES % 16.2 % (15.0-51.0); MEAN CORPUSCULAR HEMOGLOBIN 30.6 pg (29.0-33.0); MEAN CORPUSCULAR HGB CONC 33.4 g/dl (32.0-37.0); MEAN CORPUSCULAR VOLUME 91.4 fl (82.0-101.0); MEAN PLATELET VOLUME 9.6 fl (7.4-10.4); MONOCYTE # 0.5 10^3/ul (0.3-0.9); MONOCYTES % 6.7 % (0.0-11.0); NEUTROPHIL # 5.5 10^3/ul (1.6-7.5); NEUTROPHILS % 69.7 % (39.0-77.0); PLATELET COUNT 242 10^3/UL (140-415); RED BLOOD COUNT 3.96 10^6/ul (4.20-5.40); RED CELL DISTRIBUTION WIDTH 13.3 % (11.5-14.5); WHITE BLOOD COUNT 7.9 10^3/ul (4.8-10.8)
[2016-07-30 08:05] LABS: POTASSIUM 3.6 mmol/L (3.5-5.1)
[2016-07-30 08:07] LABS: CREATININE 1.17 mg/dl (0.44-1.00)
[2016-07-30 08:08] LABS: CALCIUM 8.8 mg/dl (8.4-10.2)
[2016-07-30] MEDS: INSULIN GLARGINE [LANtus] 3 ML PEN SC SCH ×2 (08:43→21:04)
[2016-07-30] MEDS: morphine 2 MG INJ IV PRN (10:43)
[2016-07-30] MEDS: LACTULOSE 30ML CUP PO PRN (12:33)
[2016-07-30] MEDS: SOD CHLORIDE 0.45% 1,000 ML IV SCH (17:44)
--- NOTE | 2016-07-30 18:07 | CONS ---
Date/Time of Note Date/Time of Note DATE: 07/30/16 TIME: 18:06 Consult Date/Type/Reason Admit Date/Time Jul 28, 2016 at 19:32 Initial Consult Date 07/29/16 Objective Vital Signs Date Time Temp Pulse Resp B/P Pulse Ox O2 Delivery O2 Flow Rate FiO2 07/30/16 17:15 97 21 07/30/16 17:00 80 07/30/16 16:25 98.7 18 136/62 07/28/16 20:22 Room Air Intake and Output 07/29/16 07/29/16 07/30/16 15:00 23:00 07:00 Intake Total 1300 ml Balance 1300 ml Results/Medications Result Diagram: 07/30/1671707/30/1618 Results 24 hrs Laboratory Tests Test 07/29/16 21:26 07/30/16 02:59 07/30/16 07:18 07/30/16 08:22 Bedside Glucose 198 104 136 Anion Gap 16 Basophils # 0.0 Basophils % 0.5 Blood Urea Nitrogen 18 Calcium Level 8.8 Carbon Dioxide Level 25 Chloride Level 103 Creatinine 1.17 H Eosinophils # 0.5 Eosinophils % 6.3 Glucose Level 133 # Hematocrit 36.2 L Hemoglobin 12.1 Lymphocytes # 1.3 Lymphocytes % 16.2 Mean Corpuscular Hemoglobin 30.6 Mean Corpuscular Hemoglobin Concent 33.4 Mean Corpuscular Volume 91.4 Mean Platelet Volume 9.6 Monocytes # 0.5 Monocytes % 6.7 Neutrophils # 5.5 Neutrophils % 69.7 Nucleated Red Blood Cells # 0.0 Nucleated Red Blood Cells % 0.0 Platelet Count 242 Potassium Level 3.6 Red Blood Count 3.96 L Red Cell Distribution Width 13.3 Sodium Level 140 White Blood Count 7.9 Test 07/30/16 12:24 07/30/16 17:36 Bedside Glucose 158 135 Medications Current Medications Ondansetron HCl (Zofran Inj) 4 mg Q6H PRN IV NAUSEA AND/OR VOMITING; Start at 20:30 Acetaminophen (Tylenol Tab) 650 mg Q6H PRN PO PAIN LEVEL 1-3 OR FEVER; Start at 20:30 Morphine Sulfate (morphine) 2 mg Q4H PRN IV SEVERE PAIN LEVEL 7-10 Last administered on 07/30/16t 10:43; Admin Dose 2 MG; Start 07/28/16 at 20:30 Docusate Sodium (Colace) 100 mg Q12H PRN PO CONSTIPATION; Start 07/28/16 at 20: 30 Magnesium Hydroxide (Milk Of Mag) 30 ml DAILY PRN PO CONSTIPATION Last administered on 07/30/16 08:37; Admin Dose 30 ML; Start 07/28/16 at 20:30 Sodium Biphosphate/ Sodium Phosphate (Fleet Enema) 133 ml DAILY PRN [place] CONSTIPATION Last administered on 07/30/16 10:40; Admin Dose 133 ML; Start at 20:30 Pantoprazole (Protonix Iv) 40 mg DAILY@06 IV Last administered on 07/29/16 05: 08; Admin Dose 40 MG; Start 07/29/16 at 06:00 Lorazepam (Ativan) 0.5 mg Q6H PRN IV ANXIETY Last administered on 07/30/16 02: 32; Admin Dose 0.5 MG; Start 07/28/16 at 20:30 Vancomycin HCl (Vanco Iv Per Pharmacy) VANCOMYCIN PER PHARMACY NOTE XX ; Start 07/28/16 at 20:30 Hydralazine HCl (Apresoline) 10 mg Q6H PRN IV ELEVATED BLOOD PRESSURE Last administered on 07/28/16 22:05; Admin Dose 10 MG; Start 07/28/16 at 20:30 Nitroglycerin (Nitroglycerin (Sl Tab) 0.4 Mg) 1 tab Q5M PRN SL ANGINA; Start at 20:30 Insulin Glargine (Lantus) 20 unit BID SC Last administered on 07/30/16 08:43; Admin Dose 20 UNIT; Start 07/28/16 at 21:00 Miscellaneous Information 1 ea NOTE XX ; Start 07/28/16 at 21:00 Glucose (Glutose) 15 gm Q15M PRN PO DECREASED GLUCOSE; Start 07/28/16 at 21:00 Glucose (Glutose) 22.5 gm Q15M PRN PO DECREASED GLUCOSE; Start 07/28/16 at 21: 00 Dextrose (D50w Syringe) 25 ml Q15M PRN IV DECREASED GLUCOSE; Start 07/28/16 at 21:00 Dextrose (D50w Syringe) 50 ml Q15M PRN IV DECREASED GLUCOSE; Start 07/28/16 at 21:00 Glucagon (Glucagen) 1 mg Q15M PRN IM DECREASED GLUCOSE; Start 07/28/16 at 21:00 Glucose 15 gm 15 gm Q15M PRN BUCCAL DECREASED GLUCOSE; Start 07/28/16 at 21:00 Vancomycin HCl 750 mg/Sodium Chloride 150 ml @ 75 mls/hr Q24H IVPB Last administered on 07/29/16 21:38; Admin Dose 75 MLS/HR; Start 07/29/16 at 21:00 Sodium Chloride 1,000 ml @ 75 mls/hr [id number] IV Last administered on 17:44; Admin Dose 75 MLS/HR; Start 07/29/16 at 05:30 Piperacillin Sod/ Tazobactam Sod (Zosyn 2.25gm/ 50ml (Pmx)) 50 ml @ 100 mls/hr Q8 IVPB Last administered on 07/30/16 17:45; Admin Dose 100 MLS/HR; Start at 14:00 Acetaminophen/ Hydrocodone Bitart ([place] (5/325)) 1 tab Q4H PRN PO pain; Start 07/29/16 at 12:30 Lactulose (Enulose) 20 gm Q8H PRN PO CONSTIPATION Last administered on 12:33; Admin Dose 20 GM; Start 07/30/16 at 10:00 Assessment/Plan Chief Complaint/Hosp Course Patient is known to our service from out pt. Pt of Dr Fuentes 86 year old M who came in with possible PNA. cardiology consulted for possible CHF. Pt has echo with LVEF 60%. and diastolic dysfunction. Pt has history of CAD with PCI x 4 at [facility]. right now no CP, some SOB Problems: Additional Assessment/Plan Diastolic HF, Chronic PNA continue abx plan per primary to d/c SIA WAGGONER MD Jul 30, 2016 18:06
--- NOTE | 2016-07-30 21:31 | PN ---
Date/Time of Note Date/Time of Note DATE: 07/30/16 TIME: 21:29 Assessment/Plan VTE Prophylaxis VTE Prophylaxis Intervention: heparin Lines/Catheters IV Catheter Type (from Nrs): Saline Lock Urinary Cath still in place: No Assessment/Plan Assessment/Plan pneumonia CHF exacerbatio, acute on chronic, Systolic +diastolic DM HTN plan IV lasix diuresis Iv abx for PNA ECHO showed EF 60%, stage I diastolic dysfunction , Cardiolgoy following Fleet enema, lactulose, Miralax heparin for DVT prophylaxis Subjective 24 Hr Interval Summary Free Text/Dictation ECHO showed EF 60%, stage I Diastolic dysfunction, BP stable, Abdominal distension, no BM for 4 days Exam/Review of Systems Vital Signs Vitals Vital Signs Date Time Temp Pulse Resp B/P Pulse Ox O2 Delivery O2 Flow Rate FiO2 07/30/16 20:36 77 07/30/16 20:33 97.5 20 135/74 96 07/30/16 17:15 21 07/28/16 20:22 Room Air Intake and Output 07/29/16 07/29/16 07/30/16 15:00 23:00 07:00 Intake Total 1300 ml Balance 1300 ml Exam GENERAL: The patient is lying in bed, in mild distress, complaining of right- sided pain. is at the bedside, but alert. HEENT: Pupils are equal, round, and react to light. Extraocular muscles are intact. NECK: Supple. No thyromegaly. LUNGS: Slightly decreased breath sounds, right greater than left. There is also tenderness to palpation in the right thoracic area. CARDIOVASCULAR: S1, S2 heard. No rubs or gallops. Again, there is reproducible tenderness over the right lateral rib cage area. ABDOMEN: Mild tenderness in left and right lower quadrants, but otherwise normal bowel sounds. No rebound or guarding. MUSCULOSKELETAL: No lower extremity edema bilaterally. NEUROLOGIC: No focal deficits. Results Result Diagram: 07/30/1618 07/30/1618 Results 24 hrs Laboratory Tests Test 07/30/16 02:59 07/30/16 07:18 07/30/16 08:22 07/30/16 12:24 Bedside Glucose 104 136 158 Anion Gap 16 Basophils # 0.0 Basophils % 0.5 Blood Urea Nitrogen 18 Calcium Level 8.8 Carbon Dioxide Level 25 Chloride Level 103 Creatinine 1.17 H Eosinophils # 0.5 Eosinophils % 6.3 Glucose Level 133 # Hematocrit 36.2 L Hemoglobin 12.1 Lymphocytes # 1.3 Lymphocytes % 16.2 Mean Corpuscular Hemoglobin 30.6 Mean Corpuscular Hemoglobin Concent 33.4 Mean Corpuscular Volume 91.4 Mean Platelet Volume 9.6 Monocytes # 0.5 Monocytes % 6.7 Neutrophils # 5.5 Neutrophils % 69.7 Nucleated Red Blood Cells # 0.0 Nucleated Red Blood Cells % 0.0 Platelet Count 242 Potassium Level 3.6 Red Blood Count 3.96 L Red Cell Distribution Width 13.3 Sodium Level 140 White Blood Count 7.9 Test 07/30/16 17:36 07/30/16 21:02 Bedside Glucose 135 183 Medications Medications Current Medications Ondansetron HCl (Zofran Inj) 4 mg Q6H PRN IV NAUSEA AND/OR VOMITING; Start at 20:30 Acetaminophen (Tylenol Tab) 650 mg Q6H PRN PO PAIN LEVEL 1-3 OR FEVER; Start at 20:30 Morphine Sulfate (morphine) 2 mg Q4H PRN IV SEVERE PAIN LEVEL 7-10 Last administered on 07/30/16 10:43; Admin Dose 2 MG; Start 07/28/16 at 20:30 Docusate Sodium (Colace) 100 mg Q12H PRN PO CONSTIPATION; Start 07/28/16 at 20: 30 Magnesium Hydroxide (Milk Of Mag) 30 ml DAILY PRN PO CONSTIPATION Last administered on 07/30/16 08:37; Admin Dose 30 ML; Start 07/28/16 at 20:30 Sodium Biphosphate/ Sodium Phosphate (Fleet Enema) 133 ml DAILY PRN OR CONSTIPATION Last administered on 07/30/16 10:40; Admin Dose 133 ML; Start at 20:30 Pantoprazole (Protonix Iv) 40 mg DAILY@06 IV Last administered on 07/29/16 05: 08; Admin Dose 40 MG; Start 07/29/16 at 06:00 Lorazepam (Ativan) 0.5 mg Q6H PRN IV ANXIETY Last administered on 07/30/16 02: 32; Admin Dose 0.5 MG; Start 07/28/16 at 20:30 Vancomycin HCl (Vanco Iv Per Pharmacy) VANCOMYCIN PER PHARMACY NOTE XX ; Start 07/28/16 at 20:30 Hydralazine HCl (Apresoline) 10 mg Q6H PRN IV ELEVATED BLOOD PRESSURE Last administered on 07/28/16 22:05; Admin Dose 10 MG; Start 07/28/16 at 20:30 Nitroglycerin (Nitroglycerin (Sl Tab) 0.4 Mg) 1 tab Q5M PRN SL ANGINA; Start at 20:30 Insulin Glargine (Lantus) 20 unit BID SC Last administered on 07/30/16 21:04; Admin Dose 20 UNIT; Start 07/28/16 at 21:00 Miscellaneous Information 1 ea NOTE XX ; Start 07/28/16 at 21:00 Glucose (Glutose) 15 gm Q15M PRN PO DECREASED GLUCOSE; Start 07/28/16 at 21:00 Glucose (Glutose) 22.5 gm Q15M PRN PO DECREASED GLUCOSE; Start 07/28/16 at 21: 00 Dextrose (D50w Syringe) 25 ml Q15M PRN IV DECREASED GLUCOSE; Start 07/28/16 at 21:00 Dextrose (D50w Syringe) 50 ml Q15M PRN IV DECREASED GLUCOSE; Start 07/28/16 at 21:00 Glucagon (Glucagen) 1 mg Q15M PRN IM DECREASED GLUCOSE; Start 07/28/16 at 21:00 Glucose 15 gm 15 gm Q15M PRN BUCCAL DECREASED GLUCOSE; Start 07/28/16 at 21:00 Vancomycin HCl 750 mg/Sodium Chloride 150 ml @ 75 mls/hr Q24H IVPB Last administered on 07/29/16 21:38; Admin Dose 75 MLS/HR; Start 07/29/16 at 21:00 Sodium Chloride 1,000 ml @ 75 mls/hr [id number] IV Last administered on 17:44; Admin Dose 75 MLS/HR; Start 07/29/16 at 05:30 Piperacillin Sod/ Tazobactam Sod (Zosyn 2.25gm/ 50ml (Pmx)) 50 ml @ 100 mls/hr Q8 IVPB Last administered on 07/30/16 17:45; Admin Dose 100 MLS/HR; Start at 14:00 Acetaminophen/ Hydrocodone Bitart ([place] (5/325)) 1 tab Q4H PRN PO pain; Start 07/29/16 at 12:30 Lactulose (Enulose) 20 gm Q8H PRN PO CONSTIPATION Last administered on t 12:33; Admin Dose 20 GM; Start 07/30/16 at 10:00 NIKIA SEGURA MD Jul 30, 2016 21:31
[2016-07-30] MEDS: VANCOMYCIN 750 MG in SOD CHLORIDE 0.9% 150 ML IVPB SCH (21:47)
[2016-07-31] VITALS (8 sets, daily range): BP systolic 112–136; BP diastolic 56–68; PULSE 65–80; RESP 18–20
[2016-07-31] MEDS: morphine 2 MG INJ IV PRN (01:14)
[2016-07-31] MEDS: PANTOPRAZOLE 40 MG INJ IV SCH (05:47)
[2016-07-31] MEDS: PIPER-TAZO 2.25 GM (PMX) 50 ML IVPB SCH (05:47)
[2016-07-31] MEDS: INSULIN ASPART [NOVOLOG] 3 ML PEN SC SCH ×4 (07:25→20:13)
[2016-07-31] MEDS: INSULIN GLARGINE [LANtus] 3 ML PEN SC SCH (10:07)
[2016-07-31 12:09] LABS: ADD SCAN DIFF NO
[2016-07-31 12:15] LABS: BASOPHIL # 0.1 10^3/ul (0.0-0.1); BASOPHILS % 0.7 % (0.0-2.0); EOSINOPHILS # 0.5 10^3/ul (0.0-0.5); EOSINOPHILS % 7.2 % (0.0-7.0); HEMATOCRIT 37.9 % (37.0-47.0); HEMOGLOBIN 12.4 g/dl (12.0-16.0); LYMPHOCYTES # 1.6 10^3/ul (0.8-2.9); LYMPHOCYTES % 22.5 % (15.0-51.0); MEAN CORPUSCULAR HEMOGLOBIN 30.2 pg (29.0-33.0); MEAN CORPUSCULAR HGB CONC 32.7 g/dl (32.0-37.0); MEAN CORPUSCULAR VOLUME 92.2 fl (82.0-101.0); MEAN PLATELET VOLUME 9.4 fl (7.4-10.4); MONOCYTE # 0.5 10^3/ul (0.3-0.9); MONOCYTES % 6.3 % (0.0-11.0); NEUTROPHIL # 4.4 10^3/ul (1.6-7.5); NEUTROPHILS % 62.5 % (39.0-77.0); PLATELET COUNT 256 10^3/UL (140-415); RED BLOOD COUNT 4.11 10^6/ul (4.20-5.40); RED CELL DISTRIBUTION WIDTH 13.5 % (11.5-14.5); WHITE BLOOD COUNT 7.1 10^3/ul (4.8-10.8)
[2016-07-31 12:33] LABS: POTASSIUM 4.4 mmol/L (3.5-5.1)
[2016-07-31 12:36] LABS: CREATININE 0.94 mg/dl (0.44-1.00)
[2016-07-31] MEDS ORDERED: DOCUSATE SODIUM 100 MG CAP PO PRN (14:30)
[2016-07-31] MEDS ORDERED: LEVOFLOXACIN 500MG/D5W (PMX) 100 ML IVPB SCH (15:00)
[2016-07-31] MEDS ORDERED: LIDOCAINE 1% (MDV) 20 ML INJ SC ONE (16:30)
--- NOTE | 2016-07-31 21:10 | PN ---
DATE: 07/31/2016 SUBJECTIVE: Patient Tila is stable this morning, sitting up in bed, appears comfortable at rest , no acute distress. Family is at bedside. PHYSICAL EXAMINATION: VITAL SIGNS: Temperature 98, pulse is 76, blood pressure 136/65, O2 saturation 96% on room air. NECK: Supple. No JVD or lymphadenopathy. CARDIAC: S1, S2. No added sounds or murmurs. CHEST: Diminished air entry bilaterally, but no rales or wheezes. ABDOMEN: Soft, nontender. No guarding or rebound. EXTREMITIES: No cyanosis, clubbing, edema. NEUROLOGIC: Grossly intact. No focal deficits. LABORATORY DATA: White count 7.1, hemoglobin 12.4. Chemistry within normal limits. Chest CT was r eviewed from 07/28/2016 shows mild CHF. I do not have results. IMPRESSION AND PLAN: 1. Resolved hypoxemic respiratory failure. 2. Improving congestive heart failure. 3. Insulin-dependent diabetes. PLAN: 1. Discontinue vancomycin and Zosyn. 2. Switch to Levaquin. 3. PT evaluation. Start ambulating. 4. Anticipate discharge tomorrow, if stable to ambulate, and/or alternatively, I will place acute r ehabilitation evaluation if patient not stable to be at home for a while. Dictated By: JACOB SUNSHINE/BRAYDON Conf#: [id number] DID#: [id number] CC: FILI BARNES;*EndCC*
[2016-07-31] MEDS: LACTULOSE 30ML CUP PO PRN (22:29)
[2016-08-01] MEDS: PANTOPRAZOLE 40 MG INJ IV SCH (06:22)
[2016-08-01 06:23] LABS: ADD SCAN DIFF NO
[2016-08-01 06:36] LABS: BASOPHIL # 0.1 10^3/ul (0.0-0.1); BASOPHILS % 0.7 % (0.0-2.0); EOSINOPHILS # 0.5 10^3/ul (0.0-0.5); EOSINOPHILS % 6.2 % (0.0-7.0); HEMATOCRIT 37.5 % (37.0-47.0); HEMOGLOBIN 12.3 g/dl (12.0-16.0); LYMPHOCYTES # 1.5 10^3/ul (0.8-2.9); LYMPHOCYTES % 21.4 % (15.0-51.0); MEAN CORPUSCULAR HEMOGLOBIN 30.1 pg (29.0-33.0); MEAN CORPUSCULAR HGB CONC 32.8 g/dl (32.0-37.0); MEAN CORPUSCULAR VOLUME 91.9 fl (82.0-101.0); MEAN PLATELET VOLUME 9.5 fl (7.4-10.4); MONOCYTE # 0.5 10^3/ul (0.3-0.9); MONOCYTES % 6.8 % (0.0-11.0); NEUTROPHIL # 4.6 10^3/ul (1.6-7.5); NEUTROPHILS % 64.2 % (39.0-77.0); PLATELET COUNT 270 10^3/UL (140-415); RED BLOOD COUNT 4.08 10^6/ul (4.20-5.40); RED CELL DISTRIBUTION WIDTH 13.2 % (11.5-14.5); WHITE BLOOD COUNT 7.2 10^3/ul (4.8-10.8)
[2016-08-01] MEDS: INSULIN ASPART [NOVOLOG] 3 ML PEN SC SCH ×4 (07:30→20:17)
[2016-08-01 07:37] LABS: POTASSIUM 4.2 mmol/L (3.5-5.1)
[2016-08-01 07:40] LABS: CREATININE 0.9 mg/dl (0.44-1.00)
[2016-08-01 07:41] LABS: CALCIUM 9.2 mg/dl (8.4-10.2)
[2016-08-01] MEDS: LACTULOSE 30ML CUP PO PRN (08:03)
[2016-08-01] MEDS: INSULIN GLARGINE [LANtus] 3 ML PEN SC SCH (08:04)
[2016-08-01 08:08] VITALS: BP 153/70; RESP 18
--- NOTE | 2016-08-01 08:43 | CONS ---
Date/Time of Note Date/Time of Note DATE: 08/01/16 TIME: 08:42 Consult Date/Type/Reason Admit Date/Time Jul 28, 2016 at 19:32 Initial Consult Date 07/29/16 Objective Vital Signs Date Time Temp Pulse Resp B/P Pulse Ox O2 Delivery O2 Flow Rate FiO2 08/01/16 08:08 97.7 75 18 153/70 94 07/30/16 17:15 21 07/28/16 20:22 Room Air Intake and Output 07/31/16 07/31/16 08/01/16 14:59 22:59 06:59 Intake Total 820 ml 600 ml Balance 820 ml 600 ml Results/Medications Result Diagram: 08/01/16 0520 08/01/16 0520 Results 24 hrs Laboratory Tests Test 07/31/16 10:01 07/31/16 11:45 07/31/16 12:00 07/31/16 18:17 Bedside Glucose 159 129 141 Anion Gap 15 Basophils # 0.1 Basophils % 0.7 Blood Urea Nitrogen 16 Calcium Level 9.0 Carbon Dioxide Level 27 Chloride Level 101 Creatinine 0.94 Eosinophils # 0.5 Eosinophils % 7.2 H Glucose Level 133 Hematocrit 37.9 Hemoglobin 12.4 Lymphocytes # 1.6 Lymphocytes % 22.5 Mean Corpuscular Hemoglobin 30.2 Mean Corpuscular Hemoglobin Concent 32.7 Mean Corpuscular Volume 92.2 Mean Platelet Volume 9.4 Monocytes # 0.5 Monocytes % 6.3 Neutrophils # 4.4 Neutrophils % 62.5 Nucleated Red Blood Cells # 0.0 Nucleated Red Blood Cells % 0.0 Platelet Count 256 Potassium Level 4.4 Red Blood Count 4.11 L Red Cell Distribution Width 13.5 Sodium Level 139 White Blood Count 7.1 Test 07/31/16 20:09 08/01/16 05:20 08/01/16 07:39 Bedside Glucose 148 109 Anion Gap 17 H Basophils # 0.1 Basophils % 0.7 Blood Urea Nitrogen 15 Calcium Level 9.2 Carbon Dioxide Level 25 Chloride Level 104 Creatinine 0.90 Eosinophils # 0.5 Eosinophils % 6.2 Glucose Level 106 Hematocrit 37.5 Hemoglobin 12.3 Lymphocytes # 1.5 Lymphocytes % 21.4 Mean Corpuscular Hemoglobin 30.1 Mean Corpuscular Hemoglobin Concent 32.8 Mean Corpuscular Volume 91.9 Mean Platelet Volume 9.5 Monocytes # 0.5 Monocytes % 6.8 Neutrophils # 4.6 Neutrophils % 64.2 Nucleated Red Blood Cells # 0.0 Nucleated Red Blood Cells % 0.0 Platelet Count 270 Potassium Level 4.2 Prealbumin 15.5 L Red Blood Count 4.08 L Red Cell Distribution Width 13.2 Sodium Level 142 White Blood Count 7.2 Medications Current Medications Ondansetron HCl (Zofran Inj) 4 mg Q6H PRN IV NAUSEA AND/OR VOMITING; Start at 20:30 Acetaminophen (Tylenol Tab) 650 mg Q6H PRN PO PAIN LEVEL 1-3 OR FEVER; Start at 20:30 Morphine Sulfate (morphine) 2 mg Q4H PRN IV SEVERE PAIN LEVEL 7-10 Last administered on 07/31/16 01:14; Admin Dose 2 MG; Start 07/28/16 at 20:30 Magnesium Hydroxide (Milk Of Mag) 30 ml DAILY PRN PO CONSTIPATION Last administered on 07/30/16 08:37; Admin Dose 30 ML; Start 07/28/16 at 20:30 Sodium Biphosphate/ Sodium Phosphate (Fleet Enema) 133 ml DAILY PRN [place] CONSTIPATION Last administered on 07/30/16 10:40; Admin Dose 133 ML; Start at 20:30 Pantoprazole (Protonix Iv) 40 mg DAILY@06 IV Last administered on 08/01/16 06: 22; Admin Dose 40 MG; Start 07/29/16 at 06:00 Lorazepam (Ativan) 0.5 mg Q6H PRN IV ANXIETY Last administered on 07/30/16 02: 32; Admin Dose 0.5 MG; Start 07/28/16 at 20:30 Hydralazine HCl (Apresoline) 10 mg Q6H PRN IV ELEVATED BLOOD PRESSURE Last administered on 07/28/16 22:05; Admin Dose 10 MG; Start 07/28/16 at 20:30 Nitroglycerin (Nitroglycerin (Sl Tab) 0.4 Mg) 1 tab Q5M PRN SL ANGINA; Start at 20:30 Miscellaneous Information 1 ea NOTE XX ; Start 07/28/16 at 21:00 Glucose (Glutose) 15 gm Q15M PRN PO DECREASED GLUCOSE; Start 07/28/16 at 21:00 Glucose (Glutose) 22.5 gm Q15M PRN PO DECREASED GLUCOSE; Start 07/28/16 at 21: 00 Dextrose (D50w Syringe) 25 ml Q15M PRN IV DECREASED GLUCOSE; Start 07/28/16 at 21:00 Dextrose (D50w Syringe) 50 ml Q15M PRN IV DECREASED GLUCOSE; Start 07/28/16 at 21:00 Glucagon (Glucagen) 1 mg Q15M PRN IM DECREASED GLUCOSE; Start 07/28/16 at 21:00 Glucose (Glutose) 15 gm Q15M PRN BUCCAL DECREASED GLUCOSE; Start 07/28/16 at 21 :00 Lactulose (Enulose) 20 gm Q8H PRN PO CONSTIPATION Last administered on 08:03; Admin Dose 20 GM; Start 07/30/16 at 10:00 Insulin Glargine (Lantus) 12 unit DAILY SC Last administered on 08/01/16 08:04 ; Admin Dose 12 UNIT; Start 08/01/16 at 09:00 Docusate Sodium 100 mg 100 mg BID PRN PO CONSTIPATION; Start 07/31/16 at 14:30 Levofloxacin/ Dextrose (Levaquin 250 Mg/ D5W 50 ml (Pmx)) 50 ml @ 50 mls/hr Q24H IVPB ; Start 08/01/16 at 15:00 Assessment/Plan Chief Complaint/Hosp Course Patient is known to our service from out pt. Pt of Dr Fuentes 86 year old M who came in with possible PNA. cardiology consulted for possible CHF. Pt has echo with LVEF 60%. and diastolic dysfunction. Pt has history of CAD with PCI x 4 at [facility]. right now no CP, some SOB Problems: Additional Assessment/Plan Cardiac contreras stable plan for d/c out pt f/.u in our office with SIA Medeiros MD Aug 01, 2016 08:43
--- NOTE | 2016-08-01 12:58 | PN ---
Date/Time of Note Date/Time of Note DATE: 08/01/16 TIME: 12:51 Assessment/Plan VTE Prophylaxis VTE Prophylaxis Intervention: heparin Lines/Catheters IV Catheter Type (from Nrs): Saline Lock Urinary Cath still in place: No Assessment/Plan Assessment/Plan IMPRESSION AND PLAN: 1. Resolved hypoxemic respiratory failure. 2. Improving congestive heart failure 3. Insulin-dependent diabetes aic 9.1 4. Constipation mild diarrhea and abd pain after laxative therapy 5. Margaret UTI PLAN: * add antifungal to regimen * hold all laxatives and stay hydrated * Use bentyl for pain if needed, but for now allow meds to wear their course * Continue supportive care Subjective 24 Hr Interval Summary Gastrointestinal: pain, passing stool ( a lot after lactulose therapy) Exam/Review of Systems Vital Signs Vitals Vital Signs Date Time Temp Pulse Resp B/P Pulse Ox O2 Delivery O2 Flow Rate FiO2 08/01/16 08:08 97.7 75 18 153/70 94 07/30/16 17:15 21 07/28/16 20:22 Room Air Intake and Output 07/31/16 07/31/16 08/01/16 14:59 22:59 06:59 Intake Total 820 ml 600 ml Balance 820 ml 600 ml Exam Constitutional: alert, oriented Psych: anxiety Head: atraumatic, normocephalic Eyes: PERRL Neck: non-tender Respiratory: clear to auscultation Cardiovascular: regular rate and rhythm Gastrointestinal: bowel sounds (hyperactive), non-tender, soft Extremities: No edema Neurological: lethargic, nl mental status, nl speech Results Result Diagram: 08/01/16 0520 08/01/16 0520 Results 24 hrs Laboratory Tests Test 07/31/16 18:17 07/31/16 20:09 08/01/16 05:20 08/01/16 07:39 Bedside Glucose 141 148 109 Anion Gap 17 H Basophils # 0.1 Basophils % 0.7 Blood Urea Nitrogen 15 Calcium Level 9.2 Carbon Dioxide Level 25 Chloride Level 104 Creatinine 0.90 Eosinophils # 0.5 Eosinophils % 6.2 Glucose Level 106 Hematocrit 37.5 Hemoglobin 12.3 Lymphocytes # 1.5 Lymphocytes % 21.4 Mean Corpuscular Hemoglobin 30.1 Mean Corpuscular Hemoglobin Concent 32.8 Mean Corpuscular Volume 91.9 Mean Platelet Volume 9.5 Monocytes # 0.5 Monocytes % 6.8 Neutrophils # 4.6 Neutrophils % 64.2 Nucleated Red Blood Cells # 0.0 Nucleated Red Blood Cells % 0.0 Platelet Count 270 Potassium Level 4.2 Prealbumin 15.5 L Red Blood Count 4.08 L Red Cell Distribution Width 13.2 Sodium Level 142 White Blood Count 7.2 Test 08/01/16 11:26 Bedside Glucose 244 H Medications Medications Current Medications Ondansetron HCl (Zofran Inj) 4 mg Q6H PRN IV NAUSEA AND/OR VOMITING; Start at 20:30 Acetaminophen (Tylenol Tab) 650 mg Q6H PRN PO PAIN LEVEL 1-3 OR FEVER; Start at 20:30 Morphine Sulfate (morphine) 2 mg Q4H PRN IV SEVERE PAIN LEVEL 7-10 Last administered on 07/31/16 01:14; Admin Dose 2 MG; Start 07/28/16 at 20:30 Magnesium Hydroxide (Milk Of Mag) 30 ml DAILY PRN PO CONSTIPATION Last administered on 07/30/16 08:37; Admin Dose 30 ML; Start 07/28/16 at 20:30 Sodium Biphosphate/ Sodium Phosphate (Fleet Enema) 133 ml DAILY PRN [place] CONSTIPATION Last administered on 07/30/16 10:40; Admin Dose 133 ML; Start at 20:30 Pantoprazole (Protonix Iv) 40 mg DAILY@06 IV Last administered on 08/01/16 06: 22; Admin Dose 40 MG; Start 07/29/16 at 06:00 Lorazepam (Ativan) 0.5 mg Q6H PRN IV ANXIETY Last administered on 07/30/16 02: 32; Admin Dose 0.5 MG; Start 07/28/16 at 20:30 Hydralazine HCl (Apresoline) 10 mg Q6H PRN IV ELEVATED BLOOD PRESSURE Last administered on 07/28/16 22:05; Admin Dose 10 MG; Start 07/28/16 at 20:30 Nitroglycerin (Nitroglycerin (Sl Tab) 0.4 Mg) 1 tab Q5M PRN SL ANGINA; Start at 20:30 Miscellaneous Information 1 ea NOTE XX ; Start 07/28/16 at 21:00 Glucose (Glutose) 15 gm Q15M PRN PO DECREASED GLUCOSE; Start 07/28/16 at 21:00 Glucose (Glutose) 22.5 gm Q15M PRN PO DECREASED GLUCOSE; Start 07/28/16 at 21: 00 Dextrose (D50w Syringe) 25 ml Q15M PRN IV DECREASED GLUCOSE; Start 07/28/16 at 21:00 Dextrose (D50w Syringe) 50 ml Q15M PRN IV DECREASED GLUCOSE; Start 07/28/16 at 21:00 Glucagon (Glucagen) 1 mg Q15M PRN IM DECREASED GLUCOSE; Start 07/28/16 at 21:00 Glucose (Glutose) 15 gm Q15M PRN BUCCAL DECREASED GLUCOSE; Start 07/28/16 at 21 :00 Lactulose (Enulose) 20 gm Q8H PRN PO CONSTIPATION Last administered on 08:03; Admin Dose 20 GM; Start 07/30/16 at 10:00 Insulin Glargine (Lantus) 12 unit DAILY SC Last administered on 08/01/16 08:04 ; Admin Dose 12 UNIT; Start 08/01/16 at 09:00 Docusate Sodium 100 mg 100 mg BID PRN PO CONSTIPATION; Start 07/31/16 at 14:30 Levofloxacin/ Dextrose (Levaquin 250 Mg/ D5W 50 ml (Pmx)) 50 ml @ 50 mls/hr Q24H IVPB ; Start 08/01/16 at 15:00 FRED VALDEZ Aug 01, 2016 12:58
[2016-08-01] MEDS ORDERED: FLUCONAZOLE 200 MG/NS (PMX) 100 ML IVPB SCH (14:00)
[2016-08-01] MEDS ORDERED: LEVOFLOXACIN 250MG/D5W (PMX) 50 ML IVPB SCH (15:00)
[2016-08-01] MEDS: LEVOFLOXACIN 250 MG TAB PO SCH (17:03)
[2016-08-01] MEDS: HEPARIN 5,000 UNIT/0.5 ML SYG SC SCH (20:16)
[2016-08-01 22:49] VITALS: BP 125/59; RESP 18
[2016-08-02] MEDS: PANTOPRAZOLE (EC) 40 MG TAB PO SCH (05:25)
[2016-08-02 08:44] VITALS: BP 164/72; RESP 18
[2016-08-02] MEDS: FLUCONAZOLE 200 MG TAB PO SCH (08:56)
[2016-08-02] MEDS: LEVOFLOXACIN 250 MG TAB PO SCH (08:56)
[2016-08-02] MEDS: INSULIN ASPART [NOVOLOG] 3 ML PEN SC SCH ×4 (08:58→22:01)
[2016-08-02] MEDS: INSULIN GLARGINE [LANtus] 3 ML PEN SC SCH (08:59)
[2016-08-02] MEDS: HEPARIN 5,000 UNIT/0.5 ML SYG SC SCH ×2 (09:00→22:01)
[2016-08-02 10:28] LABS: ADD SCAN DIFF NO
[2016-08-02 10:38] LABS: BASOPHIL # 0.1 10^3/ul (0.0-0.1); BASOPHILS % 0.7 % (0.0-2.0); EOSINOPHILS # 0.4 10^3/ul (0.0-0.5); EOSINOPHILS % 4.9 % (0.0-7.0); HEMATOCRIT 37.6 % (37.0-47.0); HEMOGLOBIN 12.6 g/dl (12.0-16.0); LYMPHOCYTES % 23.1 % (15.0-51.0); MEAN CORPUSCULAR HEMOGLOBIN 30.1 pg (29.0-33.0); MEAN CORPUSCULAR HGB CONC 33.5 g/dl (32.0-37.0); MEAN PLATELET VOLUME 9.4 fl (7.4-10.4); MONOCYTE # 0.5 10^3/ul (0.3-0.9); MONOCYTES % 5.6 % (0.0-11.0); NEUTROPHIL # 5.5 10^3/ul (1.6-7.5); NEUTROPHILS % 64.6 % (39.0-77.0); PLATELET COUNT 273 10^3/UL (140-415); RED BLOOD COUNT 4.18 10^6/ul (4.20-5.40); RED CELL DISTRIBUTION WIDTH 13.2 % (11.5-14.5); WHITE BLOOD COUNT 8.5 10^3/ul (4.8-10.8)
[2016-08-02 10:40] LABS: POTASSIUM 4.1 mmol/L (3.5-5.1)
[2016-08-02 10:42] LABS: CREATININE 0.8 mg/dl (0.44-1.00)
[2016-08-02 10:43] LABS: CALCIUM 9.3 mg/dl (8.4-10.2)
[2016-08-02] MEDS ORDERED: OLME20TA20 PO (13:00)
[2016-08-02] MEDS ORDERED: ALBU90AE INHALATION (13:00)
[2016-08-02] MEDS ORDERED: LEVO250T35 PO (13:00)
[2016-08-02] MEDS ORDERED: FLUC200T36 PO (13:00)
[2016-08-02] MEDS ORDERED: LANT3I SC (13:00)
--- NOTE | 2016-08-02 17:26 | PN ---
Date/Time of Note Date/Time of Note DATE: 08/02/16 TIME: 17:25 Assessment/Plan VTE Prophylaxis VTE Prophylaxis Intervention: heparin Lines/Catheters IV Catheter Type (from Nrsg): Saline Lock Urinary Cath still in place: No Assessment/Plan Assessment/Plan IMPRESSION AND PLAN: 1. Resolved hypoxemic respiratory failure. 2. Improving congestive heart failure 3. Insulin-dependent diabetes aic 9.1 4. Constipation mild diarrhea and abd pain after laxative therapy 5. Margaret UTI 6. Persistent abd pain PLAN: * RUQ USS to eval pain * Pain may be reffered from R sided pneumonia or neuropathic * will broaden abx spectrum and add neurontin * Continue supportive care Subjective 24 Hr Interval Summary Free Text/Dictation Patient complaining of persistent R sided abd pain Exam/Review of Systems Vital Signs Vitals Vital Signs Date Time Temp Pulse Resp B/P Pulse Ox O2 Delivery O2 Flow Rate FiO2 08/02/16 08:44 98.2 87 18 164/72 93 07/30/16 17:15 21 Intake and Output 08/01/16 08/01/16 08/02/16 15:00 23:00 07:00 Intake Total 100 ml 1540 ml 440 ml Balance 100 ml 1540 ml 440 ml Exam Constitutional: alert, oriented Psych: anxiety Head: atraumatic, normocephalic Eyes: PERRL Neck: non-tender Respiratory: clear to auscultation Cardiovascular: regular rate and rhythm Gastrointestinal: bowel sounds (hyperactive), ?RUQ mild tenderness, soft Extremities: No edema Neurological: lethargic, nl mental status, nl speech Results Result Diagram: 08/02/16 1005 08/02/16 1005 Results 24 hrs Laboratory Tests Test 08/01/16 20:14 08/02/16 02:01 08/02/16 07:57 08/02/16 10:05 Bedside Glucose 241 H 156 149 White Blood Count 8.5 Red Blood Count 4.18 L Hemoglobin 12.6 Hematocrit 37.6 Mean Corpuscular Volume 90.0 Mean Corpuscular Hemoglobin 30.1 Mean Corpuscular Hemoglobin Concent 33.5 Red Cell Distribution Width 13.2 Platelet Count 273 Mean Platelet Volume 9.4 Neutrophils % 64.6 Lymphocytes % 23.1 Monocytes % 5.6 Eosinophils % 4.9 Basophils % 0.7 Nucleated Red Blood Cells % 0.0 Neutrophils # 5.5 Lymphocytes # 2.0 Monocytes # 0.5 Eosinophils # 0.4 Basophils # 0.1 Nucleated Red Blood Cells # 0.0 Sodium Level 138 Potassium Level 4.1 Chloride Level 104 Carbon Dioxide Level 22 Anion Gap 16 Blood Urea Nitrogen 15 Creatinine 0.80 Glucose Level 141 Calcium Level 9.3 Test 08/02/16 12:02 08/02/16 17:11 Bedside Glucose 238 H 156 Medications Medications Current Medications Ondansetron HCl (Zofran Inj) 4 mg Q6H PRN IV NAUSEA AND/OR VOMITING; Start at 20:30 Acetaminophen (Tylenol Tab) 650 mg Q6H PRN PO PAIN LEVEL 1-3 OR FEVER Last administered on 08/02/16 00:54; Admin Dose 650 MG; Start 07/28/16 at 20:30 Morphine Sulfate (morphine) 2 mg Q4H PRN IV SEVERE PAIN LEVEL 7-10 Last administered on 07/31/16 01:14; Admin Dose 2 MG; Start 07/28/16 at 20:30 Magnesium Hydroxide (Milk Of Mag) 30 ml DAILY PRN PO CONSTIPATION Last administered on 07/30/16 08:37; Admin Dose 30 ML; Start 07/28/16 at 20:30 Sodium Biphosphate/ Sodium Phosphate (Fleet Enema) 133 ml DAILY PRN RI CONSTIPATION Last administered on 07/30/16 10:40; Admin Dose 133 ML; Start at 20:30 Lorazepam (Ativan) 0.5 mg Q6H PRN IV ANXIETY Last administered on 07/30/16 02: 32; Admin Dose 0.5 MG; Start 07/28/16 at 20:30 Hydralazine HCl (Apresoline) 10 mg Q6H PRN IV ELEVATED BLOOD PRESSURE Last administered on 07/28/16 22:05; Admin Dose 10 MG; Start 07/28/16 at 20:30 Nitroglycerin (Nitroglycerin (Sl Tab) 0.4 Mg) 1 tab Q5M PRN SL ANGINA; Start at 20:30 Miscellaneous Information 1 ea NOTE XX ; Start 07/28/16 at 21:00 Glucose (Glutose) 15 gm Q15M PRN PO DECREASED GLUCOSE; Start 07/28/16 at 21:00 Glucose (Glutose) 22.5 gm Q15M PRN PO DECREASED GLUCOSE; Start 07/28/16 at 21: 00 Dextrose (D50w Syringe) 25 ml Q15M PRN IV DECREASED GLUCOSE; Start 07/28/16 at 21:00 Dextrose (D50w Syringe) 50 ml Q15M PRN IV DECREASED GLUCOSE; Start 07/28/16 at 21:00 Glucagon (Glucagen) 1 mg Q15M PRN IM DECREASED GLUCOSE; Start 07/28/16 at 21:00 Glucose (Glutose) 15 gm Q15M PRN BUCCAL DECREASED GLUCOSE; Start 07/28/16 at 21 :00 Lactulose (Enulose) 20 gm Q8H PRN PO CONSTIPATION Last administered on 08:03; Admin Dose 20 GM; Start 07/30/16 at 10:00 Docusate Sodium (Colace) 100 mg BID PRN PO CONSTIPATION; Start 07/31/16 at 14: 30 Heparin Sodium (Porcine) (Heparin (5000 Units/0.5 ml)) 5,000 unit BID SC Last administered on 08/02/16 09:00; Admin Dose 5,000 UNIT; Start 08/01/16 at 21:00 Levofloxacin (Levaquin) 250 mg DAILY PO Last administered on 08/02/16 08:56; Admin Dose 250 MG; Start 08/01/16 at 16:30 Fluconazole (Diflucan) 200 mg DAILY PO Last administered on 08/02/16 08:56; Admin Dose 200 MG; Start 08/02/16 at 09:00 Pantoprazole (Protonix Tab) 40 mg DAILY@06 PO Last administered on 08/02/16 05 :25; Admin Dose 40 MG; Start 08/02/16 at 06:00 Insulin Glargine (Lantus) 15 unit DAILY@08 SC ; Start 08/03/16 at 08:00 Procedures Procedures PROCEDURE: CT Chest without contrast. CLINICAL INDICATION: Pneumonia. TECHNIQUE: CT scan of the chest without contrast was performed on a multidetector high-resolution CT scanner. Coronal and sagittal reformatted images were obtained from the axial source images. The total exam CTDI equals 7.37 mGy and the total exam DLP equals 274.6 mGy-cm. One or more of the following dose reduction techniques were used: - Automated exposure control. - Adjustment of the mA and/or kV according to patient size. Use of iterative reconstruction technique. COMPARISON: Chest x-ray 07/28/2016 02:36 p.m. FINDINGS: The vocal cords, thyroid gland trachea are normal. There are vascular calcifications in the aortic arch, innominate artery and proximal portions of the right and left subclavian arteries. The pulmonary vasculature is equilibrated. No pleural effusion is noted. No enlarged supraclavicular or axillary lymph nodes are identified. No chest wall mass is noted. There are bronchograms consistent with consolidative infiltrate in the periphery of the right lower lobe. There is a 3 mm calcified granuloma abutting the pleural space in the medial lingula. There is peripheral atelectasis in the left lower lobe. There is a 4.5 mm pulmonary nodule abutting the pleural surface in the left upper lobe. This is most likely a granuloma and requires no additional follow- up. There are peripheral plate-like densities in the posterior segment of the right upper lobe and posterior apical segment of the left upper lobe consistent with atelectasis or scarring. The pulmonary vasculature There are small degenerative osteophytes in the thoracic spine. No acute bony fracture or bone metastasis is noted. There are old healed left-sided rib fractures. There are vascular calcifications in the coronary arteries, thoracic aorta and upper abdominal aorta. There is a small hiatal hernia. Stomach is distended with fluid and air. The liver measures 14 cm AP and is unremarkable as visualized. Small amount of sludge and/or small stones are noted in the dependent portion of the gallbladder. There are vascular calcifications in the splenic artery. The spleen is normal in size. The adrenal glands and visible portions of the kidneys are normal. IMPRESSION: 1. Resolution of the interstitial pulmonary edema previously identified on the chest x-ray performed at 02:36 p.m. July 28, 2016. 2. 4.5 ml pulmonary nodule abutting the pleural surface in the left upper lobe and 3 mm calcified granuloma in the medial lingula. 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 3. Small localized consolidated infiltrate/atelectasis in the right lower lobe with air bronchograms. Pneumonia might present this fashion. 4. Atherosclerosis and ectasia of the thoracic aorta. Atherosclerotic vascular disease involving the coronary arteries. 5. Multiple old healed left- sided rib fractures. RPTAT:AAJJ Nick Wiseman, Physician Date Time Electronically viewed and signed by Nick Wiseman Physician on 07/28/2016 21:06 JM/ CC: MOLLYTOBIAS PROCEDURE: CT Abdomen and Pelvis with contrast. CLINICAL INDICATION: Abdominal and flank pain TECHNIQUE: CT of the abdomen and pelvis was performed on a multi-detector scanner following the uncomplicated IV administration of 99 cc of Visipaque 320. Coronal and sagittal images were reformatted from the axial data set. One or more of the following dose reduction techniques were used: automated exposure control, adjustment of the mA and/or kV according to patient size, use of iterative reconstruction technique. CTDI = 10.6 mGy. DLP = 631.07 mGy- cm. COMPARISON: None. FINDINGS: CT abdomen: Mild right pleural effusion and bibasilar atelectasis are noted. There is mild cardiomegaly, without significant pericardial fluid. Coronary arterial calcifications are noted. Liver, gallbladder, biliary tree, pancreas, spleen, adrenal glands and kidneys are unremarkable. No urolithiasis or obstructive uropathy is identified. Mild hiatal hernia is noted. There is suggestion of mild diffuse gastric wall thickening, suspicious for mild gastritis. There is no abdominal aortic aneurysm or dissection. Aortic vascular calcifications are present. There is no retroperitoneal lymphadenopathy. The nelia hepatis region is clear. CT pelvis: No bowel obstruction, free intraperitoneal air or abscess is identified. Sigmoid diverticulosis is seen without diverticulitis. The appendix is well visualized and normal. There is no colitis. Urinary bladder is moderately distended, concerning for urinary retention. Uterus and adnexa are grossly unremarkable. No pelvic mass, free fluid or lymphadenopathy is identified. The surrounding osseous structures are remarkable for degenerative spondylosis of the spine. No osteolytic or osteoblastic lesion is detected. IMPRESSION: 1. Urinary bladder is moderately distended, concerning for urinary retention. 2. There is suggestion of mild diffuse gastric wall thickening, possibly indicating gastritis. 3. Mild hiatal hernia is noted. 4. There is mild cardiomegaly. Coronary arterial and aortic atherosclerotic calcifications are present. 5. Mild right pleural effusion and bibasilar atelectasis are noted. 6. Sigmoid diverticulosis is seen without diverticulitis. 7. No mass or lymphadenopathy is identified. RPTAT: JJ .Giancarlo Kilpatrick MD, MD Date Time Electronically viewed and signed by .Giancarlo Kilpatrick MD, MD on 07/28/2016 16: 04 .R/ CC: TOBIAS BARNES BOLATITO M. Aug 02, 2016 17:26
--- NOTE | 2016-08-02 17:27 | RADRPT ---
PROCEDURE: US Abdomen (right upper quadrant). CLINICAL INDICATION: Right upper quadrant abdomen pain. TECHNIQUE: Multiple real-time longitudinal and transverse images of the right upper quadrant of th e abdomen were acquired utilizing a curved array transducer. Images were reviewed on a high-resoluti on PACS workstation. COMPARISON: CT scan of the abdomen and pelvis dated 07/28/2016. FINDINGS: The liver is normal in size and echogenicity. There is no focal hepatic lesion. Color Doppler and pulsed Doppler sonography demonstrate normal a ntegrade flow in the portal vein. The gallbladder is normal with no stones or wall thickening. There is no pericholecystic fluid daniel ection. The bile ducts are normal with the common bile duct measuring 4.3 mm in diameter. The visualized portions of the pancreas are unremarkable with obscuration of the tail of the pancrea s. No free fluid is present. The right kidney measures 9.1 cm. There is normal echogenicity of the right kidney. There is no p erinephric fluid collection. No hydronephrosis, mass, or calculus is seen. IMPRESSION: 1. Unremarkable right upper quadrant abdomen ultrasound. RPTAT: QQ .Cortez Duran MD, Date Time Electronically viewed and signed by .Cortez Duran MD, on 08/02/2016 17:27 .R/
[2016-08-02 21:28] VITALS: BP 128/60; RESP 18
[2016-08-02] MEDS: GABAPENTIN 100 MG CAP PO SCH (22:08)
[2016-08-02] MEDS: AMOXICILLIN/CLAV 875 MG TAB PO SCH (22:26)
[2016-08-03] MEDS: PANTOPRAZOLE (EC) 40 MG TAB PO SCH (05:25)
[2016-08-03 07:56] VITALS: BP 104/58; RESP 18
[2016-08-03] MEDS ORDERED: INSULIN GLARGINE [LANtus] 3 ML PEN SC SCH (08:00)
[2016-08-03] MEDS: INSULIN ASPART [NOVOLOG] 3 ML PEN SC SCH ×2 (08:17→12:07)
[2016-08-03] MEDS: HEPARIN 5,000 UNIT/0.5 ML SYG SC SCH (08:18)
[2016-08-03] MEDS: FLUCONAZOLE 200 MG TAB PO SCH (08:19)
[2016-08-03] MEDS: GABAPENTIN 100 MG CAP PO SCH ×2 (08:19→12:34)
[2016-08-03] MEDS: LEVOFLOXACIN 250 MG TAB PO SCH (08:19)
[2016-08-03] MEDS: AMOXICILLIN/CLAV 875 MG TAB PO SCH (08:19)
[2016-08-03 11:28] LABS: ADD SCAN DIFF NO
[2016-08-03 11:33] LABS: BASOPHIL # 0.1 10^3/ul (0.0-0.1); BASOPHILS % 0.9 % (0.0-2.0); EOSINOPHILS # 0.4 10^3/ul (0.0-0.5); EOSINOPHILS % 4.4 % (0.0-7.0); HEMATOCRIT 37.5 % (37.0-47.0); HEMOGLOBIN 12.6 g/dl (12.0-16.0); LYMPHOCYTES # 1.9 10^3/ul (0.8-2.9); LYMPHOCYTES % 19.2 % (15.0-51.0); MEAN CORPUSCULAR HEMOGLOBIN 30.8 pg (29.0-33.0); MEAN CORPUSCULAR HGB CONC 33.6 g/dl (32.0-37.0); MEAN CORPUSCULAR VOLUME 91.7 fl (82.0-101.0); MEAN PLATELET VOLUME 9.4 fl (7.4-10.4); MONOCYTE # 0.5 10^3/ul (0.3-0.9); MONOCYTES % 5.4 % (0.0-11.0); NEUTROPHIL # 6.9 10^3/ul (1.6-7.5); NEUTROPHILS % 68.3 % (39.0-77.0); PLATELET COUNT 248 10^3/UL (140-415); RED BLOOD COUNT 4.09 10^6/ul (4.20-5.40); RED CELL DISTRIBUTION WIDTH 13.4 % (11.5-14.5); WHITE BLOOD COUNT 10.1 10^3/ul (4.8-10.8)
[2016-08-03 12:18] LABS: POTASSIUM 4.1 mmol/L (3.5-5.1)
[2016-08-03 12:21] LABS: CALCIUM 9.2 mg/dl (8.4-10.2); CREATININE 0.87 mg/dl (0.44-1.00)
--- NOTE | 2016-08-03 14:55 | PDOCDIS ---
Discharge Instructions DIAGNOSIS Discharge Diagnosis: Congestive heart failure CONDITION Patient Condition: Stable HOME CARE INSTRUCTIONS: Special Diet: Soft, 1800 Tima, 2g Na ACTIVITY: Activity Restrictions: Slowly Increase Activity Rest between Activity FOLLOW UP/APPOINTMENTS Appointments Followup with your primary doctor within the next 1 week. If you don't have one please let someone know, we can give you resources that may help you pick one. You may also call your insurance company to assign one to you. Review your medication list with your nurse before leaving and if you need new prescriptions please let your nurse know. I may have made changes to your home medications or given you new prescriptions , please let your primary doctor know as well. Stay compliant with your medications and report any side effects to your PCP or pharmacist. Return to the ER if you have any concerns and cannot reach your doctors or call your insurance company, they usually have a nurse that can help you. FRED VALDEZ Aug 03, 2016 14:55
[2016-08-03] MEDS ORDERED: POLY17PO6 PO (15:02)
[2016-08-03] MEDS ORDERED: FAMO-18 PO (15:02)
[2016-08-03] MEDS ORDERED: GABA100C14 PO (15:02)
[2016-08-03] MEDS ORDERED: ASPI-535 PO (15:02)
[2016-08-03] MEDS ORDERED: AMOX1TAB10 PO (15:02)
[2016-08-03] MEDS ORDERED: LANT3I SC (15:02)
[2016-08-03] MEDS ORDERED: UDROBDM PO (15:36)
--- NOTE | 2016-08-04 18:48 | DS ---
DATE OF ADMISSION: 07/28/2016 DATE OF DISCHARGE: 08/03/2016 PRESENTING COMPLAINT: Right flank pain, ground-level fall, shortness of breath. ADMISSION DIAGNOSES: 1. Right flank pain thought to be secondary to pneumonia and mild congestive heart failure. 2. Diabetes. 3. Hypertension. 4. Mild renal insufficiency. FINAL DIAGNOSES: 1. Right-sided flank pain status post fall, likely secondary to musculoskeletal injury without evid ence of rib fracture on both x-ray imaging as well as CT scan. 2. New-onset congestive heart failure that has significantly improved. 3. Resolved hypoxemic respiratory failure. 4. Insulin-dependent diabetes mellitus type 2 with poor home control. Last A1c 9.1 with improved c ontrol now. 5. Constipation, now resolved. 6. Margaret urinary tract infection. 7. The patient also has a 4 mm pulmonary nodule, left upper lobe. 8. Probable right lower lobe infiltrate concerning for pneumonia. 9. The patient also had chronic kidney disease based on the ____ GFR. CONSULTANTS ON THE CASE: Dr. Juan C Wilson for Pulmonary, Dr. Martha Severino for Cardiology. HOSPITAL COURSE: Full details are available in chart for review. In summary, this patient was brou ght into the emergency room by her family with symptoms noted above. The patient was admitted and f or shortness of breath commenced on aggressive diuresis. Pulmonary was consulted after a CT scan of her chest showed pulmonary nodules and a calcified granuloma, and the radiologist was concerned for probable tuberculosis. There was also noted consolidated infiltrate and atelectasis that could be pneumonia. Pulmonary saw the patient, and their recommendations were for pneumonia to be treated co mpletely first and repeat imaging done and the further interventions depend on the findings. The brittni butterfield also underwent a urinalysis that showed urinary tract infection. She had a 2D echocardiogram 07/29 that showed EF of 60% but elevated peak PA systolic pressure of 39, suggesting that her heart failure was of diastolic origin. She did well in house, but I guess due to her age, her recovery wa s slow, and then likely secondary to the fall, she continued to have persistent right-sided pain. S he was treated with pain medicine, and she was worked up extensively to ensure that there were no oc cult problems causing said pain. She also has an ultrasound of her right upper quadrant which also came back negative. CT of the abdomen and pelvis was also done that showed mild urinary retention, some mild right-sided pleural effusion and mild cardiomegaly. As of 08/03, the patient, even though she was still having pain which is likely musculoskeletal, she was feeling much better. She was di scharged home in stable condition to the care of her family to follow up with her own primary care rachel hightower, her own ultra sound technician, and referral was given to follow up with pulmonary doctor, Dr. Wilson, as an outpatient. FINAL MEDICATIONS: 1. Albuterol inhalation as needed. 2. Amoxicillin/clavulanate twice a day for 10 days. 3. Aspirin 81 daily. 4. Pepcid 20 daily. 5. Fluconazole 200 daily. 6. ____ t.i.d. 7. Robitussin as needed for cough. 8. Lantus 30 units daily. 9. Levaquin 250 daily for 5 days. 10. Benicar 20 daily. 11. MiraLax 17 grams daily. This plan of care was discussed extensively and in detail with the patient's and her daughte r, questions were answered. I also spoke with the consultants on the case. I spoke with [employer]. For further clarification and information, please review the patient's chart. Time spent on discharge planning was more than 45 minutes. Dictated By: FRED VALDEZ MD BA/NTS Conf#: [id number] DID#: [id number]
== END 2016-08-03 17:49 | disposition home health service (06) | DRG 291 ==
LOC: E/R 13:13 → TEL 19:32 → PP2 07-31 18:04
PROVIDERS: ADMIT Hospitalist; ATTEND Hospitalist
DX: I13.0 Hypertensive heart and chronic kidney disease with heart failure and stage 1 through stage 4 chronic kidney disease, or unspecified chronic kidney disease (principal); J18.9 Pneumonia, unspecified organism; J96.91 Respiratory failure, unspecified with hypoxia; E11.8 Type 2 diabetes mellitus with unspecified complications; I25.10 Atherosclerotic heart disease of native coronary artery without angina pectoris; B37.49 Other urogenital candidiasis; I50.43 Acute on chronic combined systolic (congestive) and diastolic (congestive) heart failure; Z79.4 Long term (current) use of insulin; K57.30 Diverticulosis of large intestine without perforation or abscess without bleeding; R14.0 Abdominal distension (gaseous); K59.00 Constipation, unspecified; R19.7 Diarrhea, unspecified; R33.9 Retention of urine, unspecified; N18.9 Chronic kidney disease, unspecified; R10.9 Unspecified abdominal pain; W10.9XXA Fall (on) (from) unspecified stairs and steps, initial encounter; Y93.9 Activity, unspecified
CPT/HCPCS: 71010; 71250; 74177; 76705; 80048; 80053; 80061; 81001; 81003; 82150; 82962; 83036; 83690; 83735; 83880; 84100; 84134; 84439; 84443; 84484; 85025; 85610; 85730; 87040; 87086; 92610; 93005; 93306; 94664; 96361; 96365; 96366; 96368; 96375; 97116; 97161; 97530; C9113; J0360; J0456; J1644; J1815; J1940; J1956; J2060; J2270; J2405; J2543; J3370; J7030; Q9967

== ENCOUNTER 2016-10-19 13:06 | Observation (INO) | payer MEDICARE, OTHER ==
[~2016-10-19] VITALS: Ht 154.9 cm; Wt 59.7 kg
[~2016-10-19 13:06] MED LIST changes: +ALBU90AE INHALATION; +AMOX1TAB10 PO; +ASPI-535 PO; +FAMO-18 PO; +FLUC200T36 PO; +GABA100C14 PO; -ISOS30TA; +LANT3I SC; +LEVO250T35 PO; +OLME20TA20 PO; +POLY17PO6 PO; -PRAS10TA6; -SITA1TAB7; +UDROBDM PO; -UNKNOWN INSULIN; -ZOLP5TAB; -[UNRECOGNIZED DRUG - REMARK]
--- NOTE | 2016-10-19 13:23 | ERA ---
ER Documentation Chief Complaint Date/Time DATE: 10/19/16 TIME: 13:22 Chief Complaint BIB RA FROM HOME C/O CP. HPI 86-year-old woman with a history of coronary artery disease and previous coronary artery stents presents with pressure-like chest pain radiating to the jaw and medial aspect of the left arm. Symptoms began at rest associated with shortness of breath as well. She denies recent cough, no fevers or chills, no vomiting or diarrhea, no loss of consciousness. Patient has been prescribed aspirin daily although admits to not using it this a.m. Patient was transported to by EMS without further complications. ROS All systems reviewed and are negative except as per history of present illness. Medications Home Meds Reported Medications Insulin Degludec (Tresiba Flextouch U-100) 100 Unit/1 Ml Insuln.pen, 20 UNIT SQ QHS 10/19/16 Ranolazine* (Ranexa*) 500 Mg Tab.sr.12h, 500 MG PO Q12, TAB 10/19/16 Aspirin (Low Dose Aspirin) 81 Mg Tablet., 81 MG PO DAILY, #30 TAB 10/19/16 Gabapentin* (Gabapentin*) 100 Mg Capsule, 100 MG PO QHS, #90 CAP 10/19/16 Polyethylene Glycol* (Miralax*) 17 Gm Powd.pack, 17 GM PO DAILY, #30 PACKET 10/19/16 Famotidine* (Famotidine*) 20 Mg Tablet, 20 MG PO DAILY, #30 TAB 10/19/16 Albuterol Sulfate* (Ventolin HFA*) 18 Gm Hfa.aer.ad, 2 PUFF INHALATION Q6H, #1 INHALER 10/19/16 Nitroglycerin* (Nitrostat*) 0.4 Mg Tab.subl, 0.4 MG SL Q5MIN Y for CHEST PAIN, BOTTLE 10/19/16 Dexlansoprazole (Dexilant) 60 Mg , 60 MG PO DAILY, #30 CAP 10/19/16 Olmesartan/Hydrochlorothiazide (Benicar Hct 40-25 mg Tablet) 1 Each Tablet, 1 EACH PO DAILY, TAB 10/19/16 Canagliflozin (Invokana) 300 Mg Tablet, 300 MG PO DAILY, TAB 10/19/16 Discontinued Scripts Guaifenesin-Dextromethorphan* (Robitussin* DM) 100MG/10MG/5ML Syrup, 5 ML PO Q4H Y for COUGH, #100 ML Prov:FRED VALDEZ . 08/03/16 Famotidine* (Pepcid*) 20 Mg Tablet, 20 MG PO DAILY, #30 TAB Prov:FERD VALDEZ . 08/03/16 Polyethylene Glycol* (Miralax*) 17 Gm Powd.pack, 17 GM PO DAILY, #30 PACKET Prov:FRED VALDEZ . 08/03/16 Gabapentin* (Gabapentin*) 100 Mg Capsule, 100 MG PO TID for 30 Days, CAP 2 [facility]16 Aspirin Ec (Aspir 81) 81 Mg Tablet.dr, 81 MG PO DAILY, #30 TAB Prov:FRED VALDEZ . 08/03/16 Amoxicillin/Potassium Clav (Amox-Clav 875-125 mg Tablet) 875-125 mg Tab, 875 MG PO BID for 10 Days, TAB Prov:NICKO VALDEZ 08/03/16 Insulin Glargine* (Lantus*) 100 Unit/Ml Soln, 30 UNIT SC DAILY for 30 Days, VIAL 2 Refills Prov:FRED VALDEZ . 08/03/16 Olmesartan Medoxomil (Benicar) 20 Mg Tablet, 20 MG PO DAILY, #30 TAB Prov:FRED VALDEZ . 08/02/16 Albuterol Sulfate (Proair Respiclick) 90 Mcg Aer.pow.ba, 1 PUFF INHALATION Q4 Y for SHORTNESS OF BREATH, #1 BOTTLE Prov:FRED VALDEZ . 08/02/16 Levofloxacin* (Levaquin*) 250 Mg Tablet, 250 MG PO DAILY for 5 Days, TAB Prov:FRED VALDEZ . 08/02/16 Fluconazole* (Diflucan*) 200 Mg Tablet, 200 MG PO DAILY for 5 Days, TAB Prov:FRED VALDEZ . 08/02/16 Allergies Allergies: Coded Allergies: No Known Drug Allergies (Verified Allergy, Unknown, 10/19/16) PMhx/Soc CHF, coronary artery disease with stents, diabetes mellitus, hypertension, chronic kidney injury, previous [place] History of Surgery: No Anesthesia Reaction: No Hx Neurological Disorder: No Hx Respiratory Disorders: Yes (sleep apnea) Hx Cardiac Disorders: Yes (HTN, 4 cardiac stents) Hx Psychiatric Problems: Yes (Dementia) Hx Miscellaneous Medical Probl: No Hx Alcohol Use: No Hx Substance Use: No Hx Tobacco Use: No Smoking Status: Never smoker FmHx Family History: diabetes Physical Exam Vitals Vital Signs Date Time Temp Pulse Resp B/P Pulse Ox O2 Delivery O2 Flow Rate FiO2 10/19/16 14:00 83 20 156/88 98 Room Air 10/19/16 13:20 98.0 80 17 161/80 97 Physical Exam GENERAL: Well-developed, well-nourished, well-hydrated, in no apparent distress , looks nontoxic in appearance HEENT: Moist mucous membranes, pink conjunctiva, no cervical spine tenderness or step-off deformities, no goiter, no jaundice or icterus, extraocular movements intact without pain. No submandibular induration, and no pharyngeal erythema NEURO: Alert and oriented 3, cranial nerves II through XII intact bilaterally, pupils equal round reactive to light, no focal deficits or facial asymmetry, sensation intact distally Strength 5/5 in upper and lower extremities bilaterally CARDIAC: Regular rate and rhythm, no murmurs rubs or gallops LUNGS: Clear bilaterally no wheezing crackles or stridor ABDOMEN: Soft nontender, no guarding, no rigidity, no rebound, no psoas sign no obturator sign. Normoactive bowel sounds SKIN: Warm and dry to touch, no abrasions, contusions, or hematomas, no lacerations, no ecchymosis, no target lesions, and without ulcers EXTREMITIES: No clubbing cyanosis or edema, calves are bilaterally symmetrical, no Homans sign, no popliteal cord sign. Distal pulses equal and bilateral PSYCH: Normal affect without agitation or irritability Result Diagram: 10/19/16 1340 10/19/16 1340 Results 24 hrs Laboratory Tests Test 10/19/16 13:40 White Blood Count 6.210^3/ul Red Blood Count 4.4610^6/ul Hemoglobin 13.6g/dl Hematocrit 39.9% Mean Corpuscular Volume 89.5fl Mean Corpuscular Hemoglobin 30.5pg Mean Corpuscular Hemoglobin Concent 34.1g/dl Red Cell Distribution Width 13.7% Platelet Count 64738^3/UL Mean Platelet Volume 10.6fl Neutrophils % 62.9% Lymphocytes % 26.8% Monocytes % 4.7% Eosinophils % 4.5% Basophils % 0.6% Nucleated Red Blood Cells % 0.0/100WBC Neutrophils # 3.910^3/ul Lymphocytes # 1.710^3/ul Monocytes # 0.310^3/ul Eosinophils # 0.310^3/ul Basophils # 0.010^3/ul Nucleated Red Blood Cells # 0.010^3/ul Sodium Level 138mmol/L Potassium Level 4.7mmol/L Chloride Level 101mmol/L Carbon Dioxide Level 26mmol/L Anion Gap 16 Blood Urea Nitrogen 15mg/dl Creatinine 0.73mg/dl Glucose Level 313mg/dl Calcium Level 10.2mg/dl Total Bilirubin 0.1mg/dl Direct Bilirubin 0.00mg/dl Indirect Bilirubin 0.1mg/dl Aspartate Amino Transf (AST/SGOT) 16IU/L Alanine Aminotransferase (ALT/SGPT) 27IU/L Alkaline Phosphatase 113IU/L Troponin I < 0.012ng/ml Total Protein 7.4g/dl Albumin 4.5g/dl Globulin 2.90g/dl Albumin/Globulin Ratio 1.55 Lipase 62U/L Current Medications Medications (Trade) Dose Ordered Sig/Christopher Route PRN Reason Start Time Stop Time Status Last Admin Dose Admin Sodium Chloride (NS) 500 ml @ 500 mls/hr Q1H STAT IV 10/19/16 13:30 10/19/16 14:29 DC 10/19/16 13:47 Ondansetron HCl (Zofran Inj) 4 mg ONCE STAT IV 10/19/16 13:30 10/19/16 13:31 DC 10/19/16 13:50 Miscellaneous Medication (Gi Cocktail (2)) 40 ml ONCE STAT PO 10/19/16 13:30 10/19/16 13:31 DC 10/19/16 13:50 Belladonna/ Phenobarbital () 2 tab ONCE STAT PO 10/19/16 13:30 10/19/16 13:31 DC 10/19/16 13:48 Ketorolac Tromethamine (Toradol) 15 mg ONCE STAT IV 10/19/16 13:30 10/19/16 13:31 DC 10/19/16 13:50 Aspirin (Aspirin) 324 mg ONCE ONCE PO 10/19/16 14:00 10/19/16 14:01 DC 10/19/16 13:48 Nitroglycerin (Nitroglycerin (Sl Tab) 0.4 Mg) 1 tab ONCE ONCE SL 10/19/16 14:00 10/19/16 14:01 DC 10/19/16 13:52 Albuterol (Ventolin Hfa) 2 puff Q6H RESP THERAPY PRN INH SHORTNESS OF BREATH 10/19/16 16:00 Aspirin (Halfprin) 81 mg DAILY PO 10/20/16 09:00 Famotidine (Pepcid) 20 mg DAILY PO 10/20/16 09:00 Gabapentin (Neurontin) 100 mg QHS PO 10/19/16 21:00 Nitroglycerin (Nitroglycerin (Sl Tab) 0.4 Mg) 0.4 tab Q10MIN PRN SL CHEST PAIN 10/19/16 16:00 Polyethylene Glycol (Miralax) 17 gm DAILY PO 10/20/16 09:00 Ranolazine (Ranexa) 500 mg Q12 PO 10/19/16 16:00 Losartan Potassium (Cozaar) 100 mg DAILY PO 10/19/16 16:00 Hydrochlorothiazide (Hydrochlorothiazide) 12.5 mg DAILY PO 10/19/16 16:00 Procedures/[facility] IV line was established patient was placed on inspection machine tender rhythm strip revealed a sinus rhythm at about 80 bpm with upright P and T waves. Patient was afebrile. EKG performed, read by me revealed a normal sinus rhythm at 87 bpm, normal axis , narrow QRS complex with low voltage complexes throughout, no concerning ST elevations or depressions noted. I administered aspirin 324 mg p.o. for cardioprotective measures, nitroglycerin 0.4 mg sublingual, 500 cc normal saline intravenously, GI cocktail 50 cc p.o., Zofran 4 mg IV, Toradol 15 mg IV with good response One view chest x-ray performed, read by me revealed cardiomegaly and bilateral pulmonary vascular congestion consistent with decompensated heart failure, no acute infiltrates or pneumothorax noted. I later administered furosemide 60 mg IV for diuresis. CBC was unremarkable, electrolytes revealed mild hyperglycemia 313, liver function tests normal, troponin was negative. EKG #2 was performed a few hours after the first 1 revealing a normal sinus rhythm at 86 bpm, normal axis, narrow QRS complex, no concerning ST elevations or depressions noted. Patient admitted to telemetry setting for continued medical management cardiology consultation. Departure Diagnosis: Primary Impression: Chest pain Qualified Code: R07.9 - Chest pain, unspecified type Additional Impressions: Hypertension Qualified Code: I10 - Essential hypertension CHF (congestive heart failure) Qualified Code: I50.21 - Acute systolic congestive heart failure Condition: LOUISA Weinberg MD Oct 19, 2016 13:23
[2016-10-19] MEDS ORDERED: ONDANSETRON 4 MG INJ IV STA (13:30)
[2016-10-19] MEDS ORDERED: LIDOCAINE/MYLANTA 40 ML BTL PO STA (13:30)
[2016-10-19] MEDS ORDERED: BELLADONNA/PHENOBARBITAL TAB PO STA (13:30)
[2016-10-19] MEDS ORDERED: SOD CHLORIDE 0.9% 500 ML IV STA (13:30)
[2016-10-19] MEDS ORDERED: KETOROLAC 15 MG INJ IV STA (13:30)
[2016-10-19 13:50] LABS: ADD SCAN DIFF NO
[2016-10-19 13:52] LABS: BASOPHILS % 0.6 % (0.0-2.0); EOSINOPHILS # 0.3 10^3/ul (0.0-0.5); EOSINOPHILS % 4.5 % (0.0-7.0); HEMATOCRIT 39.9 % (37.0-47.0); HEMOGLOBIN 13.6 g/dl (12.0-16.0); LYMPHOCYTES # 1.7 10^3/ul (0.8-2.9); LYMPHOCYTES % 26.8 % (15.0-51.0); MEAN CORPUSCULAR HEMOGLOBIN 30.5 pg (29.0-33.0); MEAN CORPUSCULAR HGB CONC 34.1 g/dl (32.0-37.0); MEAN CORPUSCULAR VOLUME 89.5 fl (82.0-101.0); MEAN PLATELET VOLUME 10.6 fl (7.4-10.4); MONOCYTE # 0.3 10^3/ul (0.3-0.9); MONOCYTES % 4.7 % (0.0-11.0); NEUTROPHIL # 3.9 10^3/ul (1.6-7.5); NEUTROPHILS % 62.9 % (39.0-77.0); PLATELET COUNT 196 10^3/UL (140-415); RED BLOOD COUNT 4.46 10^6/ul (4.20-5.40); RED CELL DISTRIBUTION WIDTH 13.7 % (11.5-14.5); WHITE BLOOD COUNT 6.2 10^3/ul (4.8-10.8)
--- NOTE | 2016-10-19 13:56 | RADRPT ---
PROCEDURE: XR Chest. CLINICAL INDICATION: shortness of breath TECHNIQUE: Single portable view of the chest was obtained COMPARISON: 07/28/2016 FINDINGS: There is mild cardiomegaly. The thoracic aorta is calcified. There is mild pulmonary vascular congestion. There are bilateral perihilar and lower lobe infiltrat es. There is no pleural effusion. There are healed left posterior rib fractures.. There is no pneumothorax. The bones and soft tissues are unremarkable. RPTAT: AA IMPRESSION: Mild cardiomegaly with pulmonary vascular congestion. .Tremayne Issa MD, MD Date Time Electronically viewed and signed by .Tremayne Issa MD, on 10/19/2016 13:56 .S/
[2016-10-19] MEDS ORDERED: ASPIRIN 81 MG TAB PO ONE (14:00)
[2016-10-19] MEDS ORDERED: NITROGLYCERIN (SL) 0.4 MG TAB SL ONE (14:00)
[2016-10-19] MEDS ORDERED: CANA300T PO (14:05)
[2016-10-19] MEDS ORDERED: DEXL60CA2 PO (14:06)
[2016-10-19] MEDS ORDERED: OLME1TAB5 PO (14:06)
[2016-10-19] MEDS ORDERED: NIT4 SL (14:06)
[2016-10-19 14:09] LABS: ALANINE AMINOTRANSFERASE 27 IU/L (13-69); ALBUMIN 4.5 g/dl (3.3-4.9); ALBUMIN/GLOBULIN RATIO 1.55; ALKALINE PHOSPHATASE 113 IU/L (42-121); ANION GAP 16 (8-16); ASPARTATE AMINO TRANSFERASE 16 IU/L (15-46); BILIRUBIN,INDIRECT 0.1 mg/dl (0-1.1); BILIRUBIN,TOTAL 0.1 mg/dl (0.2-1.3); BLOOD UREA NITROGEN 15 mg/dl (7-20); CALCIUM 10.2 mg/dl (8.4-10.2); CARBON DIOXIDE 26 mmol/L (21-31); CHLORIDE 101 mmol/L (97-110); CREATININE 0.73 mg/dl (0.44-1.00); GLUCOSE 313 mg/dl (70-220); POTASSIUM 4.7 mmol/L (3.5-5.1); SODIUM 138 mmol/L (135-144); TOTAL PROTEIN 7.4 g/dl (6.1-8.1)
[2016-10-19] MEDS ORDERED: ALBU18HF INHALATION (14:13)
[2016-10-19] MEDS ORDERED: GABA100C14 PO (14:14)
[2016-10-19] MEDS ORDERED: FAMO20TA18 PO (14:14)
[2016-10-19] MEDS ORDERED: POLY17PO6 PO (14:14)
[2016-10-19] MEDS ORDERED: INSU100I31 SQ (14:15)
[2016-10-19] MEDS ORDERED: ASPI-664 PO (14:15)
[2016-10-19] MEDS ORDERED: RANO500T2 PO (14:15)
[2016-10-19 14:30] LABS: TROPONIN-I < 0.012 ng/ml (0.00-0.12)
[2016-10-19] MEDS ORDERED: ALBUTEROL 18 GM INHALER INH PRN (16:00)
[2016-10-19] MEDS ORDERED: NITROGLYCERIN (SL) 0.4 MG TAB SL PRN (16:00)
[2016-10-19] MEDS ORDERED: FUROSEMIDE 40 MG INJ IV ONE (16:30)
[2016-10-19] MEDS: RANOLAZINE (SR) 500 MG TAB PO SCH ×2 (17:30→22:05)
[2016-10-19] MEDS: HYDROCHLOROTHIAZIDE 12.5 MG CAP PO SCH (17:31)
[2016-10-19] MEDS: LOSARTAN 50 MG TAB PO SCH (17:32)
[2016-10-19 20:07] VITALS: BP 165/80; RESP 18
[2016-10-19 20:16] VITALS: Ht 154.9 cm; Wt 59.7 kg
[2016-10-19 20:33] VITALS: PULSE 67
--- NOTE | 2016-10-19 20:52 | HP ---
DATE OF ADMISSION: 10/19/2016 DATE OF : 1930 PRIMARY CARE PHYSICIAN: Unknown. CHIEF COMPLAINT: Chest pain. HISTORY OF PRESENT ILLNESS: This is an 86-year-old female who presents from home with chest pain. Poor historian due to cognitive impairment. No known aggravating, no known relieving factors. No f amily at bedside corroborating any of the story. Potentially substernal pain in the setting of no k nown aggravating or relieving factors. No witnessed palpitations, diaphoresis, nausea, vomiting or chest wall injury. No noted shortness of breath. Seen in the ER, concern for congestion, received Lasix EKG with sinus rhythm. She had an episode of diarrhea in the ER. PAST MEDICAL HISTORY: 1. Coronary artery disease. 2. History of percutaneous intervention at [facility]. 3. Diabetes. 4. Hypertension. 5. Metabolic syndrome. 6. Chronic kidney disease. 7. History of rib fractures/mechanical fall. 8. Diverticulosis. 9. Degenerative joint disease. 9. Pneumonia. 10. Left pulmonary nodule, possible TB. PAST SURGICAL HISTORY: Left knee. SOCIAL HISTORY: No active tobacco or alcohol. ALLERGIES: NO KNOWN DRUG ALLERGIES. FAMILY HISTORY: Noncontributory. REVIEW OF SYSTEMS: NEUROLOGIC: No loss of speech or vision or headache. CARDIOVASCULAR: Positive chest pain, no dyspnea, no edema. LUNGS: No dyspnea, no edema, no fever. ABDOMEN: No pain, no nausea, vomiting. Positive diarrhea. GENITOURINARY: No abdominal pain, fever, dysuria that I am aware of. PSYCHIATRIC: The patient has stable mood without any agitation, anxiety, depression. There may be some cognitive impairment. ENDOCRINE: Positive diabetes, metabolic syndrome. Possible dyslipidemia. No previous thyroid dysf unction. HEMATOLOGIC: No hematochezia, melena, hematuria. MUSCULOSKELETAL: Mild gait dysfunction due to arthritis. No rash, no itching, no edema. PHYSICAL EXAMINATION: HEENT: Extraocular movements appear to be intact. No pallor, no icterus, no adenopathy, no carotid bruits, no JVD. No droop. CARDIOVASCULAR: S1, S2 regular. No murmurs, rubs, gallops appreciated. LUNGS: Clear to auscultation bilaterally. ABDOMEN: Bowel sounds present, nontender, nondistended. No rigidity, rebound, guarding. EXTREMITIES: Without any edema. Negative Homans sign. LABORATORY DATA: White cell count of 6, hemoglobin and hematocrit of 30 and 39, platelets of 190. CMP essentially unremarkable. Glucose of 313. Troponin negative. Lipase is 62. Chest x-ray aristides rning for cardiomegaly, congestion, left posterior rib fractures. ASSESSMENT: 1. Chest pain, atypical. Rule out acute coronary syndrome. Rule out arrhythmias. Potentially DEEP D. Probably fluid overload related. 2. Chronic coronary disease, stable. Continue medical management. Needs advance care planning ree valuated. 3. Mild common impairment versus vascular dementia. Needs advanced care planning reevaluated. 4. Abnormal chest imaging. May need her CAT scan of her chest updated. 5. Diverticulosis. 6. Diabetes/metabolic syndrome. 7. Hypertension. PLAN: Admit to tele, rule out ACS by enzymes and follow for arrhythmia. Continue medical managemen t. Dictated By: GINA ANTONIO MD AC/NTS Conf#: [id number] DID#: [id number] CC: JACOB RODRIGUEZ MD;*EndCC*
[2016-10-19] MEDS ORDERED: GLUCAGON 1 MG INJ IM PRN (21:30)
[2016-10-19] MEDS ORDERED: GLUCOSE GEL 15 GRAM TUBE BUCCAL PRN (21:30)
[2016-10-19] MEDS ORDERED: GLUCOSE GEL 15 GRAM TUBE PO PRN ×2 (21:30)
[2016-10-19] MEDS ORDERED: DEXTROSE 50% 50 ML SYRINGE IV PRN ×2 (21:30)
[2016-10-19] MEDS ORDERED: hydrALAzine 20 MG INJ IV PRN (21:30)
[2016-10-19] MEDS: GABAPENTIN 100 MG CAP PO SCH (22:06)
[2016-10-19] MEDS: INSULIN ASPART [NOVOLOG] 3 ML PEN SC SCH (22:17)
[2016-10-20] VITALS (12 sets, daily range): BP systolic 118–149; BP diastolic 57–76; PULSE 67–88; RESP 16–20
[2016-10-20] MEDS: ACCU-CHEK XX SCH (02:19)
[2016-10-20] MEDS: INSULIN ASPART [NOVOLOG] 3 ML PEN SC SCH ×4 (08:57→20:24)
[2016-10-20] MEDS: LOSARTAN 50 MG TAB PO SCH (08:58)
[2016-10-20] MEDS: RANOLAZINE (SR) 500 MG TAB PO SCH ×2 (08:58→21:02)
[2016-10-20] MEDS: HYDROCHLOROTHIAZIDE 12.5 MG CAP PO SCH (08:58)
[2016-10-20] MEDS: FAMOTIDINE 20 MG TAB PO SCH (08:59)
[2016-10-20] MEDS: POLYETHYLENE GLYCOL 17 GM PACKET PO SCH (08:59)
[2016-10-20] MEDS: ASPIRIN (EC) 81 MG TAB PO SCH (08:59)
[2016-10-20 10:08] LABS: ADD SCAN DIFF NO
[2016-10-20 10:14] LABS: HEMATOCRIT 38.6 % (37.0-47.0); HEMOGLOBIN 13.1 g/dl (12.0-16.0); MEAN CORPUSCULAR HEMOGLOBIN 30.5 pg (29.0-33.0); MEAN CORPUSCULAR HGB CONC 33.9 g/dl (32.0-37.0); MEAN CORPUSCULAR VOLUME 89.8 fl (82.0-101.0); MEAN PLATELET VOLUME 10.5 fl (7.4-10.4); PLATELET COUNT 189 10^3/UL (140-415); WHITE BLOOD COUNT 6.6 10^3/ul (4.8-10.8)
[2016-10-20 10:50] LABS: CALCIUM 9.3 mg/dl (8.4-10.2); CREATININE 0.81 mg/dl (0.44-1.00); MAGNESIUM 1.7 mg/dl (1.7-2.5); POTASSIUM 4.7 mmol/L (3.5-5.1)
[2016-10-20 11:01] LABS: TROPONIN-I 2.59 ng/ml (0.00-0.12)
[2016-10-20] MEDS ORDERED: ENOXAPARIN 60 MG/0.6 ML SYG SC SCH (11:30)
[2016-10-20] MEDS ORDERED: MAGNESIUM SULFATE 2 GM/50 ML 50 ML IVPB ONE (12:00)
[2016-10-20 12:36] LABS: EOSINOPHILS # 0.2 10^3/ul (0.0-0.5); LYMPHOCYTES # 1.8 10^3/ul (0.8-2.9); MONOCYTE # 0.4 10^3/ul (0.3-0.9); NEUTROPHIL # 4.2 10^3/ul (1.6-7.5)
--- NOTE | 2016-10-20 12:49 | PN ---
Date/Time of Note Date/Time of Note DATE: 10/20/16 TIME: 12:46 Assessment/Plan VTE Prophylaxis VTE Prophylaxis Intervention: LMWH Lines/Catheters IV Catheter Type (from Rust): Saline Lock Assessment/Plan Chief Complaint/Hosp Course Subjective: Chest pain, no dyspnea travel fever. Objective: Sinus rhythm, poor R-wave regression through inferior anterior leads. Possible age undetermined old injury Physical examination No pallor JVD Reg no m/r/g CTAB Bs + nt nd, no r/r/g No edema/Homans A/P 1. Chest pain, troponin elevated. Stable, NSTEMI? Cont Ranexa. Added statin/asa /Lovenox/statin.Consider cath. 2. Chr CAD on Ranexa 3. CKD 4. Pulmonary nodule? Problems: Exam/Review of Systems Vital Signs Vitals Vital Signs Date Time Temp Pulse Resp B/P Pulse Ox O2 Delivery O2 Flow Rate FiO2 10/20/16 12:14 73 10/20/16 11:09 98.2 16 120/70 97 10/20/16 08:13 Nasal Cannula 2.0 Intake and Output 10/19/16 10/19/16 10/20/16 15:00 23:00 07:00 Intake Total 500 ml 240 ml Output Total 350 ml Balance 150 ml 240 ml Results Result Diagram: 10/20/16 0940 10/20/16 0940 Results 24 hrs Laboratory Tests Test 10/19/16 13:40 10/19/16 22:09 10/20/16 02:12 10/20/16 08:02 White Blood Count 6.2 # Red Blood Count 4.46 Hemoglobin 13.6 Hematocrit 39.9 Mean Corpuscular Volume 89.5 Mean Corpuscular Hemoglobin 30.5 Mean Corpuscular Hemoglobin Concent 34.1 Red Cell Distribution Width 13.7 Platelet Count 196 # Mean Platelet Volume 10.6 H Neutrophils % 62.9 Lymphocytes % 26.8 Monocytes % 4.7 Eosinophils % 4.5 Basophils % 0.6 Nucleated Red Blood Cells % 0.0 Neutrophils # 3.9 Lymphocytes # 1.7 Monocytes # 0.3 Eosinophils # 0.3 Basophils # 0.0 Nucleated Red Blood Cells # 0.0 Sodium Level 138 Potassium Level 4.7 Chloride Level 101 Carbon Dioxide Level 26 Anion Gap 16 Blood Urea Nitrogen 15 Creatinine 0.73 Glucose Level 313 H Calcium Level 10.2 Total Bilirubin 0.1 L Direct Bilirubin 0.00 Indirect Bilirubin 0.1 Aspartate Amino Transf (AST/SGOT) 16 Alanine Aminotransferase (ALT/SGPT) 27 Alkaline Phosphatase 113 Troponin I < 0.012 Total Protein 7.4 Albumin 4.5 Globulin 2.90 Albumin/Globulin Ratio 1.55 Lipase 62 Bedside Glucose 233 H 227 H 160 Test 10/20/16 09:40 10/20/16 12:12 White Blood Count 6.6 Red Blood Count 4.30 Hemoglobin 13.1 Hematocrit 38.6 Mean Corpuscular Volume 89.8 Mean Corpuscular Hemoglobin 30.5 Mean Corpuscular Hemoglobin Concent 33.9 Red Cell Distribution Width 14.0 Platelet Count 189 Mean Platelet Volume 10.5 H Neutrophils % 63.0 Band Neutrophils % 1.0 Lymphocytes % 27.0 Monocytes % 6.0 Eosinophils % 3.0 Neutrophils # 4.2 Lymphocytes # 1.8 Monocytes # 0.4 Eosinophils # 0.2 Sodium Level 133 L Potassium Level 4.7 Chloride Level 100 Carbon Dioxide Level 26 Anion Gap 12 Blood Urea Nitrogen 19 Creatinine 0.81 Glucose Level 221 H Calcium Level 9.3 Phosphorus Level 5.0 H Magnesium Level 1.7 Troponin I 2.590 *H Bedside Glucose 179 Medications Medications Current Medications Aspirin (Halfprin) 81 mg DAILY PO Last administered on 10/20/16 08:59; Admin Dose 81 MG; Start 10/20/16 at 09:00 Famotidine (Pepcid) 20 mg DAILY PO Last administered on 10/20/16 08:59; Admin Dose 20 MG; Start 10/20/16 at 09:00 Gabapentin (Neurontin) 100 mg QHS PO Last administered on 10/19/16 22:06; Admin Dose 100 MG; Start 10/19/16 at 21:00 Nitroglycerin (Nitroglycerin (Sl Tab) 0.4 Mg) 0.4 tab Q10MIN PRN SL CHEST PAIN ; Start 10/19/16 at 16:00 Polyethylene Glycol (Miralax) 17 gm DAILY PO Last administered on 10/20/16 08: 59; Admin Dose 17 GM; Start 10/20/16 at 09:00 Ranolazine (Ranexa) 500 mg Q12 PO Last administered on 10/20/16 08:58; Admin Dose 500 MG; Start 10/19/16 at 16:00 Losartan Potassium (Cozaar) 100 mg DAILY PO Last administered on 10/20/16 08:58 ; Admin Dose 100 MG; Start 10/19/16 at 16:00 Hydrochlorothiazide (Hydrochlorothiazide) 12.5 mg DAILY PO Last administered on 10/20/16 08:58; Admin Dose 12.5 MG; Start 10/19/16 at 16:00 Hydralazine HCl (Apresoline) 10 mg Q4H PRN IV ELEVATED BLOOD PRESSURE; Start at 21:30 Diagnostic Test (Pha) (Accu-Chek) 1 ea 02 XX Last administered on 10/20/16 02: 19; Admin Dose 1 EA; Start 10/20/16 at 02:00 Miscellaneous Information 1 ea NOTE XX ; Start 10/19/16 at 21:30 Glucose (Glutose) 15 gm Q15M PRN PO DECREASED GLUCOSE; Start 10/19/16 at 21:30 Glucose (Glutose) 22.5 gm Q15M PRN PO DECREASED GLUCOSE; Start 10/19/16 at 21:30 Dextrose (D50w Syringe) 25 ml Q15M PRN IV DECREASED GLUCOSE; Start 10/19/16 at 21:30 Dextrose (D50w Syringe) 50 ml Q15M PRN IV DECREASED GLUCOSE; Start 10/19/16 at 21:30 Glucagon (Glucagen) 1 mg Q15M PRN IM DECREASED GLUCOSE; Start 10/19/16 at 21:30 Glucose 15 gm 15 gm Q15M PRN BUCCAL DECREASED GLUCOSE; Start 10/19/16 at 21:30 Magnesium Sulfate (Magnesium Sulfate 2 Gm/50 ml) 50 ml @ 25 mls/hr ONCE ONCE IVPB ; Start 10/20/16 at 12:00; Stop 10/20/16 at 13:59 Atorvastatin Calcium (Lipitor) 20 mg HS PO ; Start 10/20/16 at 21:00 Enoxaparin Sodium (Lovenox) 60 mg Q12 SC Last administered on 10/20/16 12:13; Admin Dose 60 MG; Start 10/20/16 at 11:30 GINA ANTONIO MD Oct 20, 2016 12:49
--- NOTE | 2016-10-20 18:23 | CONS ---
Date/Time of Note Date/Time of Note DATE: 10/20/16 TIME: 18:20 Assessment/Plan Assessment/Plan Problems: (1) CHF (congestive heart failure) Status: Acute Qualifiers: Qualified Code: I50.21 - Acute systolic congestive heart failure (2) Chest pain Status: Acute Qualifiers: Qualified Code: R07.9 - Chest pain, unspecified type (3) Hypertension Status: Acute Qualifiers: Qualified Code: I10 - Essential hypertension Additional Assessment/Plan Pt has NSTEMI no CP at this time has dynamic EKG chagnes with TWI rising grop plavix 300mg heparin drip NPO lHC in AM 9 Echo Consultation Date/Type/Reason Admit Date/Time Oct 19, 2016 at 15:08 Date of Consultation: Oct 20, 2016 Type of Consultation: Interventional cardiology Reason for Consultation Patient is known to me and pt of my associate Dr Fuentes pt is 86 year old F with Pmh of CAD and PCi by Dr Herr at [facility] came in with chest pain and weakness found to have elevated trop and positve EKG chagnes TWI in anterior leads. pt needs to be on heparin drip d/w son and patient plan for LHC urgently. today cant do it as pt just had meal. Social History Smoking Status: Never smoker Exam/Review of Systems Vital Signs Vitals Vital Signs Date Time Temp Pulse Resp B/P Pulse Ox O2 Delivery O2 Flow Rate FiO2 10/20/16 16:11 74 10/20/16 15:16 98.1 18 118/68 99 10/20/16 08:13 Nasal Cannula 2.0 Intake and Output 10/19/16 10/19/16 10/20/16 15:00 23:00 07:00 Intake Total 500 ml 240 ml Output Total 350 ml Balance 150 ml 240 ml Exam Constitutional: alert, oriented, well developed Psych: no complaints Head: normocephalic Eyes: nl conjunctiva ENMT: nl external ears & nose Neck: non-tender, supple Respiratory: clear to auscultation Cardiovascular: regular rate and rhythm Gastrointestinal: soft Musculoskeletal: nl extremities to inspection Results Result Diagram: 10/20/16 0940 10/20/16 0940 Results 24 hrs Laboratory Tests Test 10/19/16 22:09 10/20/16 02:12 10/20/16 08:02 10/20/16 09:40 Bedside Glucose 233 H 227 H 160 White Blood Count 6.6 Red Blood Count 4.30 Hemoglobin 13.1 Hematocrit 38.6 Mean Corpuscular Volume 89.8 Mean Corpuscular Hemoglobin 30.5 Mean Corpuscular Hemoglobin Concent 33.9 Red Cell Distribution Width 14.0 Platelet Count 189 Mean Platelet Volume 10.5 H Neutrophils % 63.0 Band Neutrophils % 1.0 Lymphocytes % 27.0 Monocytes % 6.0 Eosinophils % 3.0 Neutrophils # 4.2 Lymphocytes # 1.8 Monocytes # 0.4 Eosinophils # 0.2 Sodium Level 133 L Potassium Level 4.7 Chloride Level 100 Carbon Dioxide Level 26 Anion Gap 12 Blood Urea Nitrogen 19 Creatinine 0.81 Glucose Level 221 H Calcium Level 9.3 Phosphorus Level 5.0 H Magnesium Level 1.7 Troponin I 2.590 *H Test 10/20/16 12:12 10/20/16 16:15 10/20/16 17:44 Bedside Glucose 179 268 H Troponin I 2.270 *H Medications Medications Current Medications Aspirin (Halfprin) 81 mg DAILY PO Last administered on 10/20/16 08:59; Admin Dose 81 MG; Start 10/20/16 at 09:00 Famotidine (Pepcid) 20 mg DAILY PO Last administered on 10/20/16 08:59; Admin Dose 20 MG; Start 10/20/16 at 09:00 Gabapentin (Neurontin) 100 mg QHS PO Last administered on 10/19/16 22:06; Admin Dose 100 MG; Start 10/19/16 at 21:00 Nitroglycerin (Nitroglycerin (Sl Tab) 0.4 Mg) 0.4 tab Q10MIN PRN SL CHEST PAIN ; Start 10/19/16 at 16:00 Polyethylene Glycol (Miralax) 17 gm DAILY PO Last administered on 10/20/16 08: 59; Admin Dose 17 GM; Start 10/20/16 at 09:00 Ranolazine (Ranexa) 500 mg Q12 PO Last administered on 10/20/16 08:58; Admin Dose 500 MG; Start 10/19/16 at 16:00 Losartan Potassium (Cozaar) 100 mg DAILY PO Last administered on 10/20/16 08:58 ; Admin Dose 100 MG; Start 10/19/16 at 16:00 Hydrochlorothiazide (Hydrochlorothiazide) 12.5 mg DAILY PO Last administered on 10/20/16 08:58; Admin Dose 12.5 MG; Start 10/19/16 at 16:00 Hydralazine HCl (Apresoline) 10 mg Q4H PRN IV ELEVATED BLOOD PRESSURE; Start at 21:30 Diagnostic Test (Pha) (Accu-Chek) 1 ea 02 XX Last administered on 10/20/16 02: 19; Admin Dose 1 EA; Start 10/20/16 at 02:00 Miscellaneous Information 1 ea NOTE XX ; Start 10/19/16 at 21:30 Glucose (Glutose) 15 gm Q15M PRN PO DECREASED GLUCOSE; Start 10/19/16 at 21:30 Glucose (Glutose) 22.5 gm Q15M PRN PO DECREASED GLUCOSE; Start 10/19/16 at 21:30 Dextrose (D50w Syringe) 25 ml Q15M PRN IV DECREASED GLUCOSE; Start 10/19/16 at 21:30 Dextrose (D50w Syringe) 50 ml Q15M PRN IV DECREASED GLUCOSE; Start 10/19/16 at 21:30 Glucagon (Glucagen) 1 mg Q15M PRN IM DECREASED GLUCOSE; Start 10/19/16 at 21:30 Glucose (Glutose) 15 gm Q15M PRN BUCCAL DECREASED GLUCOSE; Start 10/19/16 at 21: 30 Atorvastatin Calcium (Lipitor) 20 mg HS PO ; Start 10/20/16 at 21:00 Enoxaparin Sodium (Lovenox) 60 mg Q12 SC Last administered on 10/20/16 12:13; Admin Dose 60 MG; Start 10/20/16 at 11:30 Insulin Glargine (Lantus) 10 unit DAILY@20 SC ; Start 10/20/16 at 20:00; Status SIA TORRES MD Oct 20, 2016 18:23
[2016-10-20] MEDS ORDERED: HEPARIN 1000 UNITS/ML 10 ML INJ IV ONE (18:30)
[2016-10-20] MEDS ORDERED: CLOPIDOGREL 75 MG TAB PO ONE (18:30)
[2016-10-20] MEDS ORDERED: HEPARIN 25000 UNITS/250 ML 250 ML IV SCH (18:30)
[2016-10-20] MEDS ORDERED: HEPARIN 1000 UNITS/ML 10 ML INJ IV PRN (18:30)
[2016-10-20 19:27] LABS: ADD SCAN DIFF NO
[2016-10-20 19:30] LABS: BASOPHILS % 0.6 % (0.0-2.0); EOSINOPHILS # 0.5 10^3/ul (0.0-0.5); EOSINOPHILS % 6.6 % (0.0-7.0); HEMATOCRIT 38.4 % (37.0-47.0); HEMOGLOBIN 13.1 g/dl (12.0-16.0); LYMPHOCYTES # 2.2 10^3/ul (0.8-2.9); LYMPHOCYTES % 32.2 % (15.0-51.0); MEAN CORPUSCULAR HEMOGLOBIN 30.5 pg (29.0-33.0); MEAN CORPUSCULAR HGB CONC 34.1 g/dl (32.0-37.0); MEAN CORPUSCULAR VOLUME 89.3 fl (82.0-101.0); MEAN PLATELET VOLUME 10.3 fl (7.4-10.4); MONOCYTE # 0.3 10^3/ul (0.3-0.9); MONOCYTES % 4.4 % (0.0-11.0); NEUTROPHIL # 3.8 10^3/ul (1.6-7.5); NEUTROPHILS % 55.9 % (39.0-77.0); PLATELET COUNT 191 10^3/UL (140-415); RED CELL DISTRIBUTION WIDTH 13.9 % (11.5-14.5); WHITE BLOOD COUNT 6.9 10^3/ul (4.8-10.8)
[2016-10-20 19:44] LABS: INR 0.95; PROTIME 12.7 Sec (12.2-14.2)
[2016-10-20 19:45] LABS: PARTIAL THROMBOPLASTIN TIME 33.8 Sec (25.0-35.0)
[2016-10-20] MEDS: GABAPENTIN 100 MG CAP PO SCH (20:24)
[2016-10-20] MEDS: ATORVASTATIN 20 MG TAB PO SCH (20:24)
[2016-10-20] MEDS: INSULIN GLARGINE [LANtus] 3 ML PEN SC SCH (21:01)
[2016-10-21] VITALS (37 sets, daily range): BP systolic 86–149; BP diastolic 51–87; PULSE 67–106; RESP 16–27
[2016-10-21] MEDS: ACCU-CHEK XX SCH (01:33)
[2016-10-21 07:16] LABS: ADD SCAN DIFF NO
[2016-10-21 07:35] LABS: BASOPHILS % 0.7 % (0.0-2.0); EOSINOPHILS # 0.5 10^3/ul (0.0-0.5); EOSINOPHILS % 8.5 % (0.0-7.0); HEMATOCRIT 38.7 % (37.0-47.0); HEMOGLOBIN 12.9 g/dl (12.0-16.0); LYMPHOCYTES # 1.9 10^3/ul (0.8-2.9); LYMPHOCYTES % 32.6 % (15.0-51.0); MEAN CORPUSCULAR HEMOGLOBIN 30.1 pg (29.0-33.0); MEAN CORPUSCULAR HGB CONC 33.3 g/dl (32.0-37.0); MEAN CORPUSCULAR VOLUME 90.4 fl (82.0-101.0); MEAN PLATELET VOLUME 10.7 fl (7.4-10.4); MONOCYTE # 0.3 10^3/ul (0.3-0.9); MONOCYTES % 5.8 % (0.0-11.0); NEUTROPHILS % 52.1 % (39.0-77.0); PLATELET COUNT 195 10^3/UL (140-415); RED BLOOD COUNT 4.28 10^6/ul (4.20-5.40); RED CELL DISTRIBUTION WIDTH 13.9 % (11.5-14.5); WHITE BLOOD COUNT 5.9 10^3/ul (4.8-10.8)
[2016-10-21] MEDS: INSULIN ASPART [NOVOLOG] 3 ML PEN SC SCH ×4 (07:40→20:32)
[2016-10-21 07:42] LABS: INR 0.91; PROTIME 12.2 Sec (12.2-14.2)
[2016-10-21] MEDS ORDERED: IODIXANOL LOCM 100 ML BTL ONE ×4 (08:33→11:00)
[2016-10-21] MEDS ORDERED: LIDOCAINE 1% (MDV) 20 ML INJ ONE (08:33)
[2016-10-21] MEDS ORDERED: HEPARIN 1000 UNITS/NS (A-LINE) 1,000 ML ONE (08:33)
[2016-10-21] MEDS ORDERED: MIDAZOLAM 1 MG/ML 2 ML INJ ONE (08:41)
[2016-10-21] MEDS ORDERED: FENTAnyl 50 MCG/ML VIAL ONE (08:42)
[2016-10-21] MEDS ORDERED: VERAPAMIL 5 MG INJ ONE (08:53)
[2016-10-21] MEDS ORDERED: NITROGLYCERIN (IC) 100 MCG/ML INJ ONE (08:54)
[2016-10-21] MEDS: CLOPIDOGREL 75 MG TAB PO SCH (09:00)
[2016-10-21] MEDS: LOSARTAN 50 MG TAB PO SCH (09:00)
[2016-10-21] MEDS: FAMOTIDINE 20 MG TAB PO SCH (09:00)
[2016-10-21] MEDS: RANOLAZINE (SR) 500 MG TAB PO SCH ×2 (09:00→20:34)
[2016-10-21] MEDS: POLYETHYLENE GLYCOL 17 GM PACKET PO SCH (09:00)
[2016-10-21] MEDS: HYDROCHLOROTHIAZIDE 12.5 MG CAP PO SCH (09:00)
[2016-10-21] MEDS: ASPIRIN (EC) 81 MG TAB PO SCH (09:00)
[2016-10-21 09:15] LABS: CALCIUM 9.1 mg/dl (8.4-10.2); CREATININE 0.83 mg/dl (0.44-1.00); MAGNESIUM 2.1 mg/dl (1.7-2.5); PHOSPHORUS 4.9 mg/dl (2.5-4.9); POTASSIUM 4.5 mmol/L (3.5-5.1)
[2016-10-21] MEDS ORDERED: HEPARIN 1000 UNITS/ML 10 ML INJ ONE (09:34)
[2016-10-21] MEDS ORDERED: DIPHENHYDRAMINE 50 MG INJ ONE (09:41)
[2016-10-21] MEDS ORDERED: hydrALAzine 20 MG INJ ONE (10:46)
[2016-10-21] MEDS ORDERED: SOD CHLORIDE 0.9% 1,000 ML IV SCH (10:52)
--- NOTE | 2016-10-21 10:57 | CONS ---
Date/Time of Note Date/Time of Note DATE: 10/21/16 TIME: 10:55 Consult Date/Type/Reason Admit Date/Time Oct 19, 2016 at 15:08 Initial Consult Date 10/20/16 Type of Consultation: Interventional cardiology Objective Vital Signs Date Time Temp Pulse Resp B/P Pulse Ox O2 Delivery O2 Flow Rate FiO2 10/21/16 08:34 67 10/21/16 07:50 Nasal Cannula 2.0 10/21/16 07:27 98.0 18 132/69 97 Intake and Output 10/20/16 10/20/16 10/21/16 15:00 23:00 07:00 Intake Total 930 ml 436 ml Balance 930 ml 436 ml Results/Medications Result Diagram: 10/21/16 0639 10/21/16 0639 Results 24 hrs Laboratory Tests Test 10/20/16 12:12 10/20/16 16:15 10/20/16 17:44 10/20/16 19:00 Bedside Glucose 179 268 H Troponin I 2.270 *H White Blood Count 6.9 Red Blood Count 4.30 Hemoglobin 13.1 Hematocrit 38.4 Mean Corpuscular Volume 89.3 Mean Corpuscular Hemoglobin 30.5 Mean Corpuscular Hemoglobin Concent 34.1 Red Cell Distribution Width 13.9 Platelet Count 191 Mean Platelet Volume 10.3 Neutrophils % 55.9 Lymphocytes % 32.2 Monocytes % 4.4 Eosinophils % 6.6 Basophils % 0.6 Nucleated Red Blood Cells % 0.0 Neutrophils # 3.8 Lymphocytes # 2.2 Monocytes # 0.3 Eosinophils # 0.5 Basophils # 0.0 Nucleated Red Blood Cells # 0.0 Prothrombin Time 12.7 Prothrombin Time Ratio 1.0 INR International Normalized Ratio 0.95 Activated Partial Thromboplast Time 33.8 Test 10/20/16 19:58 10/21/16 01:25 10/21/16 02:11 10/21/16 06:39 Bedside Glucose 120 174 Activated Partial Thromboplast Time 58.7 H White Blood Count 5.9 Red Blood Count 4.28 Hemoglobin 12.9 Hematocrit 38.7 Mean Corpuscular Volume 90.4 Mean Corpuscular Hemoglobin 30.1 Mean Corpuscular Hemoglobin Concent 33.3 Red Cell Distribution Width 13.9 Platelet Count 195 Mean Platelet Volume 10.7 H Neutrophils % 52.1 Lymphocytes % 32.6 Monocytes % 5.8 Eosinophils % 8.5 H Basophils % 0.7 Nucleated Red Blood Cells % 0.0 Neutrophils # 3.0 Lymphocytes # 1.9 Monocytes # 0.3 Eosinophils # 0.5 Basophils # 0.0 Nucleated Red Blood Cells # 0.0 Prothrombin Time 12.2 Prothrombin Time Ratio 1.0 INR International Normalized Ratio 0.91 Sodium Level 136 Potassium Level 4.5 Chloride Level 102 Carbon Dioxide Level 27 Anion Gap 12 Blood Urea Nitrogen 21 H Creatinine 0.83 Glucose Level 133 # Calcium Level 9.1 Phosphorus Level 4.9 Magnesium Level 2.1 Test 10/21/16 07:38 10/21/16 09:00 Bedside Glucose 145 Activated Partial Thromboplast Time 70.7 *H Medications Current Medications Aspirin (Halfprin) 81 mg DAILY PO Last administered on 10/20/16 08:59; Admin Dose 81 MG; Start 10/20/16 at 09:00 Famotidine (Pepcid) 20 mg DAILY PO Last administered on 10/20/16 08:59; Admin Dose 20 MG; Start 10/20/16 at 09:00 Gabapentin (Neurontin) 100 mg QHS PO Last administered on 10/20/16 20:24; Admin Dose 100 MG; Start 10/19/16 at 21:00 Nitroglycerin (Nitroglycerin (Sl Tab) 0.4 Mg) 0.4 tab Q10MIN PRN SL CHEST PAIN ; Start 10/19/16 at 16:00 Polyethylene Glycol (Miralax) 17 gm DAILY PO Last administered on 10/20/16 08: 59; Admin Dose 17 GM; Start 10/20/16 at 09:00 Ranolazine (Ranexa) 500 mg Q12 PO Last administered on 10/20/16 21:02; Admin Dose 500 MG; Start 10/19/16 at 16:00 Losartan Potassium (Cozaar) 100 mg DAILY PO Last administered on 10/20/16 08:58 ; Admin Dose 100 MG; Start 10/19/16 at 16:00 Hydrochlorothiazide (Hydrochlorothiazide) 12.5 mg DAILY PO Last administered on 10/20/16 08:58; Admin Dose 12.5 MG; Start 10/19/16 at 16:00 Hydralazine HCl (Apresoline) 10 mg Q4H PRN IV ELEVATED BLOOD PRESSURE; Start at 21:30 Diagnostic Test (Pha) (Accu-Chek) 1 ea 02 XX Last administered on 10/21/16 01: 33; Admin Dose 1 EA; Start 10/20/16 at 02:00 Miscellaneous Information 1 ea NOTE XX ; Start 10/19/16 at 21:30 Glucose (Glutose) 15 gm Q15M PRN PO DECREASED GLUCOSE; Start 10/19/16 at 21:30 Glucose (Glutose) 22.5 gm Q15M PRN PO DECREASED GLUCOSE; Start 10/19/16 at 21:30 Dextrose (D50w Syringe) 25 ml Q15M PRN IV DECREASED GLUCOSE; Start 10/19/16 at 21:30 Dextrose (D50w Syringe) 50 ml Q15M PRN IV DECREASED GLUCOSE; Start 10/19/16 at 21:30 Glucagon (Glucagen) 1 mg Q15M PRN IM DECREASED GLUCOSE; Start 10/19/16 at 21:30 Glucose (Glutose) 15 gm Q15M PRN BUCCAL DECREASED GLUCOSE; Start 10/19/16 at 21: 30 Atorvastatin Calcium (Lipitor) 20 mg HS PO Last administered on 10/20/16 20:24 ; Admin Dose 20 MG; Start 10/20/16 at 21:00 Insulin Glargine (Lantus) 10 unit DAILY@20 SC Last administered on 10/20/16 21: 01; Admin Dose 10 UNIT; Start 10/20/16 at 20:00 Clopidogrel Bisulfate (plaVIX) 75 mg DAILY PO ; Start 10/21/16 at 09:00 Assessment/Plan Problems: (1) NSTEMI (non-ST elevated myocardial infarction) (2) CHF (congestive heart failure) (3) Chest pain (4) Hypertension Additional Assessment/Plan NSTEMI Pt had [facility] stent in LAD, Diagnoan, LCx and OM there is POCKET CLOSER of RCA old with left to right colleterals. pt has ISR of Diagonal stent. under went balloon angioplasty only for Diagonal and LAD branch. due to severe calcification and old multiple stents we just did balloon angioplasty on her. pt is stable and doing fine IV hydration Plavix and asa d/c home tomorrow AM> fu with out pt in one week with Dr Fuentes [phone] SIA WAGGONER MD Oct 21, 2016 10:57
--- NOTE | 2016-10-21 12:08 | SP ---
DATE OF PROCEDURE: 10/21/2016 INDICATIONS FOR THE PROCEDURE: Non-ST elevation myocardial infarction. PROCEDURES PERFORMED: 1. Selective left and right coronary angiography. 2. Left heart catheterization with LV gram and LV pressure measurement. 3. Complex successful PTCA only of the LAD and diagonal in-stent restenosis. 4. Supervised procedural sedation. 5. Intraoperative coronary medication injection. SURGEON: Martha Severino MD PROCEDURE DETAILS: After informed consent was obtained, the patient was brought to cardiac catheter ization lab. The patient was prepped and draped in supine position. All the risks and benefits hav e been explained to the patient as well as the patient's family and friend. Everybody agreed with t he procedure. The patient's right radial artery was accessed with a 6-Sammarinese Slender sheath over th e 0.025 wire with a diagnostic catheter. Diagnostic images were taken with 6-Sammarinese catheters as we ll as a right coronary artery catheter was entered into the left ventricle and left ventricular LV g barrie as well as LV pressure was measured. Followed by that with an XB4 guide catheter engaged with t he left main, left system picture was taken and found to have a 99% diagonal 1 in-stent restenosis a s well as mid LAD 60% in-stent restenosis. At this time, with great difficulty, we tried to cross t he wire to the diagonal branch. IV heparin was used for anticoagulation. We were unable to cross t he diagonal branch with 2.0 balloons, so we downsized the balloon to 1.5 that was unable to cross as well as from the stent struts from the LAD to diagonal. At this time, I downsized the balloon with a 1.25 that was also unable to cross. Then downsized the balloon to 1.2, which was also unable to cross. At this time, we took a Corsair and the reentered or diagonal wire to a different strut. Th e Corsair with great difficulty able to cross the stent struts into the diagonal branch, but it was completely stuck and it was a hard time to getting the Corsair out. We realized that the patient hurley s significant thick jacket stents all throughout the LAD as well as diagonal with very great difficu lty of the calcified artery lost to compliance. At this time, after the Corsair coming out, we trie d another fresh 1.2 x 8 mm balloon, which was able to cross, went up to 16 atmospheres. Followed by that, we upsized the balloon to 1.5, 2.0, 2.[address] to 3.0 balloon and balloon angioplast y was successfully performed into the diagonal branch. Followed by that there was a plaque shift in the mid LAD area, so we reentered our Runthrough wire into the mid LAD and a 3.0 x 12 mm NC balloon was inflated into the mid LAD area. The patient had a good angiographic result at the end. There is nowhere with the severely calcified small vessel that we can implant the stent. So, we decided t o just stay with the balloon angioplasty result because of the multiple stents and full metal jacket into her coronaries including circumflex as well as LAD. ASHLEY 3 flow with a good angiographic resu lt at the end. The patient's right coronary artery is 100% occluded. CORONARY FINDINGS: 1. Right coronary artery: Proximal right coronary artery 100% occluded with small [id number] c ollateral. But there are major [id number] collaterals filling of the RCA. 2. Left main: Mild diffuse disease. 3. Proximal LAD mild diffuse disease followed by mid LAD to distal LAD, there is a long stent with a mid segment of in-stent restenosis. 4. There is a large diagonal 1 coming off right at the mid segment of the LAD with a 99% in-stent r estenosis. 5. Left circumflex artery: Proximal mild diffuse disease. Mid segment has a long segment of the s tent at the bifurcation of the OM1 and mid circumflex with the OM1 also has a long segment of stent. OM2 has proximal 60% to 70% stenosis with ASHLEY 3 flow. There is a large circumflex branch giving multiple OMs supplying the PDA as well. CONCLUSION: 1. Successful complex balloon angioplasty only of the left anterior descending and diagonal branch with ASHLEY 3 flow with 3.0 x 12 mm noncompliant balloon. 2. Patent long segment of the left anterior descending stent. 4. Patent circumflex stents. 5. 100% occluded right coronary artery with ctsn-ab-lamsj collateral. RECOMMENDATIONS: Aspirin and Plavix continuous. IV hydration. conveyor monitor. If possible, di scharge home tomorrow. CONTRAST: 80 mL. COMPLICATIONS: None. Dictated By: MARTHA ROCHE/BRAYDON Conf#: [id number] DID#: [id number] CC: MARTHA SEVERINO MD;*End*
--- NOTE | 2016-10-21 16:43 | RADRPT ---
Vent Rate: 88 bpm RR Interval: 0 msec OR Interval: 156 msec QRS Duration: 68 msec QT Interval: 386 msec QTC Interval: 467 msec P-R-T [place]: 66 - -5 - 75 degrees Normal sinus rhythm Low voltage QRS Cannot rule out Anterior infarct , age undetermined ST elevation laterally c/w possible acute lateral AK Abnormal ECG No previous tracing available for comparison Electronically Signed By: Pk Pierson [id number]
--- NOTE | 2016-10-21 17:00 | RADRPT ---
Vent Rate: 78 bpm RR Interval: 0 msec FL Interval: 162 msec QRS Duration: 68 msec QT Interval: 426 msec QTC Interval: 485 msec P-R-T [place]: 4 - 23 - 87 degrees Normal sinus rhythm Cannot rule out Anterior infarct , age undetermined T wave abnormality, consider lateral ischemia Abnormal ECG No previous tracing available for comparison Electronically Signed By: Pk Pierson [id number]
--- NOTE | 2016-10-21 17:20 | RADRPT ---
PROCEDURE: CT Chest without contrast. CLINICAL INDICATION: Pulmonary nodule. Followup. TECHNIQUE: CT scan of the chest without contrast was performed on a multidetector high-resolution CT scanner. Coronal and sagittal reformatted images were obtained from the axial source images. The total exam C TDI equals 8.94 mGy and the total exam DLP equals 336.13 mGy-cm. One or more of the following dose reduction techniques were used: - Automated exposure control. - Adjustment of the mA and/or kV according to patient size. - Use of iterative reconstruction technique. COMPARISON: Chest CT dated 07/28/2016. FINDINGS: Lungs, pleura, airways, and thoracic inlet: There is minor bibasilar subsegmental atelectasis versus scarring. Previously seen consolidation at the right lower lobe has resolved. The lungs are clear without focal consolidation, effusion, or p neumothorax. There is similar appearance of a 4 mm pleural-based nodule at the left lung apex. Scar ring at the right lung apex is unchanged. A 6 mm nodule abutting the inferior margin of the right m ajor fissure is unchanged. The tracheobronchial tree is patent and normal in course and caliber. Cardiovascular system, mediastinum, and lymphatics: The heart is mildly enlarged. A trace pericardial effusion is not significantly changed. There are multivessel coronary artery calcifications. There are atherosclerotic changes of the aorta, which is nonaneurysmal. Similar appearance of prominent bilateral axillary, prevascular, and paratracheal ly mph nodes with a dominant paratracheal node measuring 11 mm in short axis. Subcarinal adenopathy hurley s improved, previously measuring 17 mm and currently measuring 14 mm in short axis. Visualized upper abdomen: The visualized upper abdomen is grossly unremarkable. Musculoskeletal system: There is multilevel degenerative spondylosis, which is advanced in the visualized cervical spine. T here is also advanced osteoarthritis of the glenohumeral joints bilaterally. There are no concerning osseous lesions. IMPRESSION: 1. Resolution of previously seen consolidation in the right lower lobe. 2. Nodules measuring 4 mm at the left lung apex and 6 mm abutting the inferior margin of the right major fissure, not significantly changed. Per the Fleischner Society, if the patient is at low ris k, no further follow-up is needed. If the patient is at high risk, follow-up at 12 months is option al. 3. Mild cardiomegaly and trace pericardial effusion, unchanged. 4. Improved subcarinal adenopathy with similar appearance of enlarged axillary and mediastinal lymp h nodes. 5. Multivessel coronary artery calcifications and atherosclerotic changes of the aorta. RPTAT: AA .Con Castro MD, Date Time Electronically viewed and signed by .Con Castro MD, on 10/21/2016 17:20 .P/
[2016-10-21] MEDS: ACETAMINOPHEN 325 MG TAB PO PRN (18:47)
--- NOTE | 2016-10-21 20:13 | PN ---
Date/Time of Note Date/Time of Note DATE: 10/21/16 TIME: 20:11 Assessment/Plan VTE Prophylaxis VTE Prophylaxis Intervention: heparin Lines/Catheters IV Catheter Type (from Nrs): Peripheral IV Assessment/Plan Chief Complaint/Hosp Course S: 10/20 chest pain, no dyspnea travel fever. 10/21 events noted. Some nausea was well post cath O: Sr PE No pallor JVD Reg no m/r/g CTAB Bs + nt nd, no r/r/g No edema/Homans A/P 1. NSTEMI Cont Ranexa/statin/asa/Lovenox/. Stable, sp cath-LAD and diagonal in- stent thrombosis seen. Added Plavix. 2. Chr CAD on Ranexa 3. CKD 4. Pulmonary nodule? Sp CT. PPD ordered. Problems: Exam/Review of Systems Vital Signs Vitals Vital Signs Date Time Temp Pulse Resp B/P Pulse Ox O2 Delivery O2 Flow Rate FiO2 10/21/16 20:04 93 10/21/16 19:10 98.2 16 123/62 100 10/21/16 14:12 Nasal Cannula 3.0 Intake and Output 10/20/16 10/20/16 10/21/16 14:59 22:59 06:59 Intake Total 930 ml 436 ml Balance 930 ml 436 ml Results Result Diagram: 10/21/16 0639 10/21/16 0639 Results 24 hrs Laboratory Tests Test 10/21/16 01:25 10/21/16 02:11 10/21/16 06:39 10/21/16 07:38 Bedside Glucose 174 145 Activated Partial Thromboplast Time 58.7 H White Blood Count 5.9 Red Blood Count 4.28 Hemoglobin 12.9 Hematocrit 38.7 Mean Corpuscular Volume 90.4 Mean Corpuscular Hemoglobin 30.1 Mean Corpuscular Hemoglobin Concent 33.3 Red Cell Distribution Width 13.9 Platelet Count 195 Mean Platelet Volume 10.7 H Neutrophils % 52.1 Lymphocytes % 32.6 Monocytes % 5.8 Eosinophils % 8.5 H Basophils % 0.7 Nucleated Red Blood Cells % 0.0 Neutrophils # 3.0 Lymphocytes # 1.9 Monocytes # 0.3 Eosinophils # 0.5 Basophils # 0.0 Nucleated Red Blood Cells # 0.0 Prothrombin Time 12.2 Prothrombin Time Ratio 1.0 INR International Normalized Ratio 0.91 Sodium Level 136 Potassium Level 4.5 Chloride Level 102 Carbon Dioxide Level 27 Anion Gap 12 Blood Urea Nitrogen 21 H Creatinine 0.83 Glucose Level 133 # Calcium Level 9.1 Phosphorus Level 4.9 Magnesium Level 2.1 Test 10/21/16 09:00 10/21/16 11:47 10/21/16 17:24 Activated Partial Thromboplast Time 70.7 *H Bedside Glucose 164 189 Medications Medications Current Medications Aspirin (Halfprin) 81 mg DAILY PO Last administered on 10/20/16 08:59; Admin Dose 81 MG; Start 10/20/16 at 09:00 Famotidine (Pepcid) 20 mg DAILY PO Last administered on 10/20/16 08:59; Admin Dose 20 MG; Start 10/20/16 at 09:00 Gabapentin (Neurontin) 100 mg QHS PO Last administered on 10/20/16 20:24; Admin Dose 100 MG; Start 10/19/16 at 21:00 Nitroglycerin (Nitroglycerin (Sl Tab) 0.4 Mg) 0.4 tab Q10MIN PRN SL CHEST PAIN ; Start 10/19/16 at 16:00 Polyethylene Glycol (Miralax) 17 gm DAILY PO Last administered on 10/20/16 08: 59; Admin Dose 17 GM; Start 10/20/16 at 09:00 Ranolazine (Ranexa) 500 mg Q12 PO Last administered on 10/20/16 21:02; Admin Dose 500 MG; Start 10/19/16 at 16:00 Losartan Potassium (Cozaar) 100 mg DAILY PO Last administered on 10/20/16 08:58 ; Admin Dose 100 MG; Start 10/19/16 at 16:00 Hydrochlorothiazide (Hydrochlorothiazide) 12.5 mg DAILY PO Last administered on 10/20/16 08:58; Admin Dose 12.5 MG; Start 10/19/16 at 16:00 Hydralazine HCl (Apresoline) 10 mg Q4H PRN IV ELEVATED BLOOD PRESSURE; Start at 21:30 Diagnostic Test (Pha) (Accu-Chek) 1 ea 02 XX Last administered on 10/21/16 01: 33; Admin Dose 1 EA; Start 10/20/16 at 02:00 Miscellaneous Information 1 ea NOTE XX ; Start 10/19/16 at 21:30 Glucose (Glutose) 15 gm Q15M PRN PO DECREASED GLUCOSE; Start 10/19/16 at 21:30 Glucose (Glutose) 22.5 gm Q15M PRN PO DECREASED GLUCOSE; Start 10/19/16 at 21:30 Dextrose (D50w Syringe) 25 ml Q15M PRN IV DECREASED GLUCOSE; Start 10/19/16 at 21:30 Dextrose (D50w Syringe) 50 ml Q15M PRN IV DECREASED GLUCOSE; Start 10/19/16 at 21:30 Glucagon (Glucagen) 1 mg Q15M PRN IM DECREASED GLUCOSE; Start 10/19/16 at 21:30 Glucose (Glutose) 15 gm Q15M PRN BUCCAL DECREASED GLUCOSE; Start 10/19/16 at 21: 30 Atorvastatin Calcium (Lipitor) 20 mg HS PO Last administered on 10/20/16 20:24 ; Admin Dose 20 MG; Start 10/20/16 at 21:00 Insulin Glargine (Lantus) 10 unit DAILY@20 SC Last administered on 10/20/16 21: 01; Admin Dose 10 UNIT; Start 10/20/16 at 20:00 Clopidogrel Bisulfate 75 mg 75 mg DAILY PO ; Start 10/21/16 at 09:00 Sodium Chloride (NS) 1,000 ml @ 75 mls/hr [id number] IV ; Start 10/21/16 at 10:52 ; Stop 10/22/16 at 00:11 Acetaminophen (Tylenol Tab) 650 mg Q6H PRN PO PAIN AND OR ELEVATED TEMP Last administered on 10/21/16 18:47; Admin Dose 650 MG; Start 10/21/16 at 19:00 GINA ANTONIO MD Oct 21, 2016 20:13
[2016-10-21] MEDS: ATORVASTATIN 20 MG TAB PO SCH (20:34)
[2016-10-21] MEDS: GABAPENTIN 100 MG CAP PO SCH (20:34)
[2016-10-21] MEDS: INSULIN GLARGINE [LANtus] 3 ML PEN SC SCH (20:37)
[2016-10-22] VITALS (7 sets, daily range): BP systolic 105–123; BP diastolic 56–63; PULSE 83–96; RESP 18–84
[2016-10-22] MEDS: ACCU-CHEK XX SCH (02:00)
[2016-10-22] MEDS: ACETAMINOPHEN 325 MG TAB PO PRN (05:36)
[2016-10-22] MEDS ORDERED: traMADol 50 MG TAB PO PRN (07:00)
[2016-10-22 07:13] LABS: ADD SCAN DIFF NO
[2016-10-22 07:16] LABS: BASOPHILS % 0.6 % (0.0-2.0); EOSINOPHILS # 0.3 10^3/ul (0.0-0.5); EOSINOPHILS % 3.9 % (0.0-7.0); HEMATOCRIT 38.3 % (37.0-47.0); HEMOGLOBIN 12.3 g/dl (12.0-16.0); LYMPHOCYTES # 1.3 10^3/ul (0.8-2.9); LYMPHOCYTES % 18.4 % (15.0-51.0); MEAN CORPUSCULAR HEMOGLOBIN 29.6 pg (29.0-33.0); MEAN CORPUSCULAR HGB CONC 32.1 g/dl (32.0-37.0); MEAN CORPUSCULAR VOLUME 92.1 fl (82.0-101.0); MONOCYTE # 0.5 10^3/ul (0.3-0.9); MONOCYTES % 7.2 % (0.0-11.0); NEUTROPHIL # 4.8 10^3/ul (1.6-7.5); NEUTROPHILS % 69.6 % (39.0-77.0); PLATELET COUNT 177 10^3/UL (140-415); RED BLOOD COUNT 4.16 10^6/ul (4.20-5.40); RED CELL DISTRIBUTION WIDTH 14.3 % (11.5-14.5); WHITE BLOOD COUNT 6.8 10^3/ul (4.8-10.8)
[2016-10-22 07:50] LABS: ALBUMIN 3.6 g/dl (3.3-4.9); ALBUMIN/GLOBULIN RATIO 1.5; BILIRUBIN,INDIRECT 0.1 mg/dl (0-1.1); BILIRUBIN,TOTAL 0.1 mg/dl (0.2-1.3); CALCIUM 8.5 mg/dl (8.4-10.2); CREATININE 0.83 mg/dl (0.44-1.00); MAGNESIUM 1.9 mg/dl (1.7-2.5); PHOSPHORUS 3.7 mg/dl (2.5-4.9); POTASSIUM 4.3 mmol/L (3.5-5.1)
[2016-10-22 07:56] LABS: TROPONIN-I 5.67 ng/ml (0.00-0.12)
[2016-10-22] MEDS: LOSARTAN 50 MG TAB PO SCH (08:16)
[2016-10-22] MEDS: ASPIRIN (EC) 81 MG TAB PO SCH (08:16)
[2016-10-22] MEDS: POLYETHYLENE GLYCOL 17 GM PACKET PO SCH (08:17)
[2016-10-22] MEDS: RANOLAZINE (SR) 500 MG TAB PO SCH (08:17)
[2016-10-22] MEDS: HYDROCHLOROTHIAZIDE 12.5 MG CAP PO SCH (08:17)
[2016-10-22] MEDS: CLOPIDOGREL 75 MG TAB PO SCH (08:17)
[2016-10-22] MEDS: FAMOTIDINE 20 MG TAB PO SCH (08:17)
[2016-10-22] MEDS: INSULIN ASPART [NOVOLOG] 3 ML PEN SC SCH ×2 (08:36→11:54)
--- NOTE | 2016-10-22 15:11 | PDOCDIS ---
Discharge Instructions DIAGNOSIS Discharge Diagnosis: chest pain CONDITION Patient Condition: Stable HOME CARE INSTRUCTIONS: Special Diet: CARB CONTROLLED ACTIVITY: Activity Restrictions: Slowly Increase Activity FOLLOW UP/APPOINTMENTS Appointments PCP 1wk Dr Severino 2wks Dr Wilson -2wks pulmonary eval. GINA ANTONIO MD Oct 22, 2016 15:11
[2016-10-22] MEDS ORDERED: ACET325T40 PO (15:14)
[2016-10-22] MEDS ORDERED: CLOP75TA28 PO (15:14)
[2016-10-22] MEDS ORDERED: VIT5OINT2 TOP (15:14)
[2016-10-22] MEDS ORDERED: ATOR20TA65 PO (15:14)
[2016-10-22] MEDS ORDERED: VITAMIN A & D 5 GM OINT PACKET TOP SCH (15:30)
--- NOTE | 2016-10-22 19:31 | DS ---
DATE OF ADMISSION: 10/19/2016 DATE OF DISCHARGE: 10/22/2016 PRIMARY CARE PHYSICIAN: Unknown. TRAINING DEVELOPER: Dr. Severino DIAGNOSIS ON ADMISSION: Non-ST elevated myocardial infarction. DIAGNOSES ON DISCHARGE: 1. In-stent thrombosis. 2. Chronic hypertension. 3. Possible medication nonadherence. 4. Chronic kidney disease. 5. Pulmonary nodule. HOSPITAL COURSE: An 86-year-old female admitted with chest pain, abnormal troponins, underwent card iac catheterization, noted to have in-stent thrombosis, underwent successful balloon angioplasty onl y of the LAD and diagonal branch with ASHLEY grade III flow. She has a patent long segment of the lef t LAD stent, patent circumflex, 100% occluded right coronary with left to right collaterals. The pa tient is stable and fit for discharge. I am not sure if she was on aspirin and statin prior to arri terese. Of note, there is surveillance on her pulmonary nodule, will need to visit her regular director of health education on followup CT done here. The patient had some thigh pain bilaterally. I am not sure if it is an issue that has happened whil e she has been on the OR table for her cardiac care. IMAGING STUDIES: Chest CT read as nodules measuring 4 mm the left lung apex and 6 mg abutting the inferior margin of right major fissure, not significantly changed, mild cardiomegaly, improved, subcarinal adenopathy, multivessel coronary calcifications. Chest x-ray: No acute process. Cardi omegaly seen. LABORATORY DATA: CBC unremarkable. INR 0.9. CMP unremarkable except for elevated blood sugars. V ital signs have improved. DISCHARGE PLAN: Home. Follow up with primary in [address] Severino in 1 to 2 weeks. Original pulmo nologist, I believe Dr. Wilson in 2 to 3 weeks. DIET: 1800 ADA cardiac. ACTIVITY: As tolerated. DURABLE MEDICAL EQUIPMENT: None. CODE STATUS: FULL. CONDITION: Stable. BARRIERS TO DISCHARGE: None. PENDING TESTS: None. FUNCTIONAL STATUS: The patient awake, alert, agrees to plan . ALLERGIES: NO KNOWN DRUG ALLERGIES. REASON FOR ADMISSION: Chest pain. CONTINUED MEDICATIONS: 1. Albuterol every 6 as needed. 2. NitroQuick as needed. 3. Benicar/HCTZ 40/25 daily. 4. Ranexa 500 b.i.d. 5. Aspirin 81 mg. 6. Neurontin 100 daily. 7. Pepcid as directed. 8. MiraLax as needed. 9. Dexilant as needed. 10. Invokana 300 mg daily. 11. Tresiba 20 units subcutaneously at bedtime. ALTERED MEDICATIONS: None. NEW MEDICATIONS: 1. Plavix 75 daily. 2. A and D ointment topically as directed. 3. Lipitor 20 daily. 4. Tylenol as needed. 5. Vitamin A and D ointment topically as directed. Dictated By: GINA ANTONIO MD AC/NTS Conf#: [id number] DID#: [id number] CC: COLEEN ARIZMENDI MD; JACOB WILSON MD; SIA SEVERINO MD;*End*
--- NOTE | 2016-10-27 08:49 | RADRPT ---
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 Physician: MARTHA SEVERINO Quality: Adequate Procedures: Transthoracic echocardiogram with complete 2D, M-Mode, and Doppler examination. Indications: NSTEMI. 2D/M Mode Doppler Measurement Value Normal Ranges Measurement Value Normal Ranges AoR Diam MM 2.8 cm AV Peak [place] 1.2 m/sec LVIDd 2D 3.5 3.5 - 5.6 cm AV Peak PG 6.1 mmHg LVIDs 2D 2.6 2.1 - 4.1 cm LVOT Peak [place] 0.8 m/sec LVPWd 2D 1.2 0.6 - 1.1 cm LVOT Peak PG 2.5 mmHg IVSd 2D 1.4 0.6 - 1.1 cm MV E Peak Aquiles 1.1 m/sec EDV 2D 51.6 cm3 MV A Peak [place] 0.3 m/sec ESV 2D 17.9 cm3 MV E/A 3.7 LA Dimen 2D 3.7 2.3 - 4.0 cm MV Decel Time 122 msec MV Decel [place] 9 MV E/A 3.7 TR Peak Aqu[place] 3.1 m/sec TR Peak PG 38.2 mmHg PV Peak [place] 0.6 m/sec PV Peak PG 2.0 mmHg RVSP 41.2 mmHg Findings Left Ventricle: Normal left ventricular systolic function. Normal left ventricular cavity size. Mild concentric left ventricular hypertrophy. Ejection fraction is visually estimated at 55 %. Tissue Doppler/Mitral Doppler indices are consistent with restrictive physiology with markedly elevated left atrial pressure (Stage IIIIV diastolic dysfunction). E/E`=32. Multiple segmental wall motion abnormalities, the apex appears possibly akinetic. E`=0 cm/s. Right Ventricle: Normal right ventricular size. Normal right ventricular systolic function. Left Atrium: The left atrium is normal in size. Right Atrium: The right atrium is normal in size. Atrial Septum: Normal atrial septum. Mitral Valve: Mitral valve leaflets appear mildly thickened. Mild mitral leaflet calcification. Mild mitral annular calcification. Mild mitral valve regurgitation. Aortic Valve: No significant aortic stenosis or insufficiency. Aortic cusps appear mildly calcified. Trileaflet aortic valve. Tricuspid Valve: Normal appearance of the tricuspid valve. Estimated peak PA systolic pressure 41 mmHg. There is moderate tricuspid regurgitation. Pulmonic Valve: Normal pulmonic valve appearance. No evidence of pulmonic regurgitation. Pericardium: Normal pericardium with no significant pericardial effusion. Aorta: Normal aortic root. IVC: Normal size and normal respiratory collapse consistent with normal right atrial pressure. Pulmonary Artery: Normal pulmonary artery size. Conclusions 1.Normal left ventricular systolic function. Normal left ventricular cavity size. Mild concentric left ventricular hypertrophy. Ejection fraction is visually estimated at 55 %. Tissue Doppler/Mitral Doppler indices are consistent with restrictive physiology with markedly elevated left atrial pressure (Stage III-IV diastolic dysfunction). E/E`=32. Multiple segmental wall motion abnormalities, the apex appears possibly akinetic. E`=0 cm/s. 2.Normal right ventricular size. Normal right ventricular systolic function. 3.The left atrium is normal in size. 4.Mitral valve leaflets appear mildly thickened. Mild mitral leaflet calcification. Mild mitral annular calcification. Mild mitral valve regurgitation. 5.No significant aortic stenosis or insufficiency. Aortic cusps appear mildly calcified. Trileaflet aortic valve. 6.Normal appearance of the tricuspid valve. Estimated peak PA systolic pressure 41 mmHg. There is moderate tricuspid regurgitation. Electronically Signed By: Martha Severino 27-Oct-2016 08:48:33 -0700 Patient Name: ELLIE HOWE Study Date: 21-Oct-[id number]
== END 2016-10-22 16:20 | disposition home or self-care (01) ==
LOC: E/R 13:06 → TEL 15:08 → INTOOBSV 15:08
PROVIDERS: ADMIT Internal Medicine; ATTEND Internal Medicine
DX: T82.868A Thrombosis due to vascular prosthetic devices, implants and grafts, initial encounter (principal); I25.10 Atherosclerotic heart disease of native coronary artery without angina pectoris; Z95.5 Presence of coronary angioplasty implant and graft; E11.22 Type 2 diabetes mellitus with diabetic chronic kidney disease; I13.0 Hypertensive heart and chronic kidney disease with heart failure and stage 1 through stage 4 chronic kidney disease, or unspecified chronic kidney disease; N18.9 Chronic kidney disease, unspecified; I50.9 Heart failure, unspecified; I25.2 Old myocardial infarction; F03.90 Unspecified dementia, unspecified severity, without behavioral disturbance, psychotic disturbance, mood disturbance, and anxiety; Z79.4 Long term (current) use of insulin; Z79.82 Long term (current) use of aspirin; Z87.01 Personal history of pneumonia (recurrent); Z83.3 Family history of diabetes mellitus; R91.1 Solitary pulmonary nodule; Y83.8 Other surgical procedures as the cause of abnormal reaction of the patient, or of later complication, without mention of misadventure at the time of the procedure
CPT/HCPCS: 36415; 71010; 71250; 80048; 80053; 82962; 83690; 83735; 84100; 84484; 85025; 85610; 85730; 93005; 93306; 96361; 96365; 96366; 96372; 96374; 96375; 99285; G0378; J0360; J1200; J1644; J1650; J1815; J1885; J1940; J2250; J2405; J3010; J3475; J7030; J7040; Q9967